=== PATIENT | male | born 1955 | race Caucasian/White ===

== ENCOUNTER 2017-06-20 10:53 | Outpatient (RCR) | payer BC, OTHER ==
[~2017-06-20] VITALS: Ht 180.3 cm; Wt 93.4 kg
[2017-06-20 10:56] VITALS: BP 120/60
== END 2017-09-18 | disposition home or self-care (01) ==
LOC: PULM 10:53
PROVIDERS: ATTEND Nurse Practitioner Family
DX: J44.9 Chronic obstructive pulmonary disease, unspecified (principal); I27.0 Primary pulmonary hypertension

== ENCOUNTER → 2018-03-01 | Outpatient (CLI) | payer BC, OTHER | LOC: LABNPT 14:43 | PROVIDERS: ATTEND Nurse Practitioner | DX: H92.12 Otorrhea, left ear (principal) | CPT/HCPCS: 87070 ==

== ENCOUNTER → 2019-10-03 | Outpatient (CLI) | payer BC, MEDICARE | LOC: CARD 11:00 | PROVIDERS: ATTEND Internal Medicine Cardiovascular Disease | DX: I11.0 Hypertensive heart disease with heart failure (principal); I50.9 Heart failure, unspecified; E78.5 Hyperlipidemia, unspecified; I34.0 Nonrheumatic mitral (valve) insufficiency | CPT/HCPCS: 93306 ==

== ENCOUNTER → 2020-04-08 | Outpatient (CLI) | payer MEDICARE ==
[~2020-04-08] MED LIST: CATHETER FLUSH 10 ML SYR IV PRN; HOLD METFORMIN - RECEIVED CONTRAST 20 ML VIAL IV SCH; IOHEXOL 350 MG/ML 100 ML (OMNIPAQUE 350) VIAL IV ONE; NS 100 ML (IVPB) BAG IV ONE; RT-ALBUTEROL SULF 2.5 MG/3 ML PRE-MIX VIAL INH ONE
[2020-04-08 12:09] LABS: BUN/CREATININE RATIO 13; CREATININE SERUM 0.86 MG/DL (0.60-1.30); GFR ESTIMATED > 60
--- NOTE | 2020-04-08 15:32 | Diagnostic Imaging Report ---
EXAMINATION: CT Chest with intravenous contrast. TECHNIQUE: Multiple contiguous axial images were obtained through the chest after the uneventful administration of intravenous contrast. All CT scans use one or more of the following dose optimizing techniques: automated exposure control, MA and/or KvP adjustment based on a patient size and exam type, or iterative reconstruction. HISTORY: COPD COMPARISON: 10/31/2007 FINDINGS: There is an airspace opacity in the posterior right upper lobe. There is a tiny right pleural effusion. No pneumothorax. No suspicious nodules. Lungs are severely emphysematous. There is bibasilar atelectasis. There is extensive dendriform pulmonary ossification in the lung bases. Evaluation of the parenchyma is reduced due to respiratory motion and expiratory phase of imaging. There is no axillary or supraclavicular lymphadenopathy. There is no mediastinal lymphadenopathy. Heart size is normal. There are no coronary artery calcifications. No pericardial effusion. Aorta is normal in caliber. Limited views of the upper abdomen show changes of cholecystectomy. There are left renal cysts. There are no suspicious osseous lesions. IMPRESSION: 1. Severe emphysema with extensive dendriform pulmonary ossification in the lung bases. Airspace opacity in the posterior right upper lobe may represent atelectasis or pneumonia but a three-month follow-up is recommended to ensure it resolves. 2. Tiny right pleural effusion. Dictated by: Dictated on workstation # [id number]
== END ==
LOC: RAD 11:27
PROVIDERS: ATTEND Nurse Practitioner Family
DX: J43.9 Emphysema, unspecified (principal)
CPT/HCPCS: 36415; 71260; 82565; 84520; 94060; 94726; 94729

== ENCOUNTER → 2022-05-18 | Outpatient (CLI) | payer MEDICARE | LOC: CARD 09:27 | PROVIDERS: ATTEND Internal Medicine Cardiovascular Disease | DX: I10 Essential (primary) hypertension (principal) | CPT/HCPCS: 93306 ==

== ENCOUNTER → 2022-06-21 | Outpatient (CLI) | payer MEDICARE ==
[~2022-06-21] VITALS: Ht 177 cm; Wt 104.0 kg
[~2022-06-21] MED LIST changes: -CATHETER FLUSH 10 ML SYR IV PRN; -HOLD METFORMIN - RECEIVED CONTRAST 20 ML VIAL IV SCH; -IOHEXOL 350 MG/ML 100 ML (OMNIPAQUE 350) VIAL IV ONE; -NS 100 ML (IVPB) BAG IV ONE; +REGADENOSON 0.4 MG/5 ML SYR (LEXISCAN) IV ONE; -RT-ALBUTEROL SULF 2.5 MG/3 ML PRE-MIX VIAL INH ONE
[2022-06-21] MEDS: CATHETER FLUSH 10 ML SYR IVP PRN ×2 (08:02→09:30)
[2022-06-21 08:11] VITALS: BP 120/85
[2022-06-21 09:19] VITALS: BP 170/114
--- NOTE | 2022-06-21 12:03 | Cardiology Stress Test Report ---
Stress Test Report Date of Procedure/Referring: Date of Procedure: Jun 21, 2022 PCP Beryl Coleman MD Admitting Physician Admitting Physician: Attending Physician: Raghu Palma MD Indications: a fib Baseline Heart Rate: 81 Baseline Blood Pressure: Blood Pressure Systolic: 170 Blood Pressure Diastolic: 114 Baseline Vitals Vital Signs Date Time Temp Pulse Resp B/P (MAP) Pulse Ox O2 Delivery O2 Flow Rate FiO2 06/21/22 09:19 80 170/114 (132) Baseline EKG: Baseline EKG: a fib, frequent PVCs Summary After explaining the procedure to the patient, he signed a consent and then brought to the stress nuclear laboratory. Patient received 0.4 mg Lexiscan for stress test, ECG, heart rate and blood pressure were monitored continuously. Resting and stress dose of radio tracer were injected, imaging was acquired and reviewed in short axis, horizontal long axis and vertical long axis views. TID: 0.96 SSS: 12 SDS: 0 EF: 62 Baseline atrial fibrillation with frequent PVCs noted Patient tolerated Lexiscan well Fixed defect involving the inferior wall and apex, no significant ischemia was noted Normal left ventricular size, ejection fraction 62%, atrial fibrillation will affect the gated images Copy Copies To 1: BERYL COLEMAN MD, BASHAR J MD Jun 21, 2022 12:03
== END ==
LOC: CARD 07:30
PROVIDERS: ATTEND Internal Medicine Cardiovascular Disease
DX: I48.91 Unspecified atrial fibrillation (principal); I10 Essential (primary) hypertension; I25.10 Atherosclerotic heart disease of native coronary artery without angina pectoris
CPT/HCPCS: 78452; 93017; A9502

== ENCOUNTER 2022-07-22 07:55 | Inpatient (IN) | payer MEDICARE ==
[~2022-07-22] VITALS: Ht 177.8 cm; Wt 100.6 kg
--- OUTSIDE RECORDS SUMMARY | 2022-07-22 08:00 | XMS REPORT | Encounter Summary ---
Author Author [facility] Organization [facility] Address Unknown Phone Unavailable Care Team Providers Care Associate Store Director Name Role Phone Bernarda Cervantes APRN-NATURAL RESOURCES INSTRUCTOR Unavailable Beryl Shi MD PCP Ramin Wang MD Unavailable Bert Kaiser MD Unavailable Reason for Visit * Reason Onset Date Comments Follow-up Phone Call 07/19/2022 Near syncope Encounter Details Care Team Description Date Type Department Lucia Bocanegra RN Follow-up Phone Call (Near syncope) 07/19/2022 Telephone Cardiology: [facility] [address] [facility] [address] [place] [address] Social History Date Tobacco Use Types Packs/Day Years Used Quit: 09/07/2006 Smoking Tobacco: Former Cigarettes Comments Alcohol Use Standard Drinks/Week Quit Yes 0 (1 standard drink = 0.6 o z pure alcohol) Date Recorded Alcohol Use Answer Alcohol Use Yes Male: 9+ ounces (15+ Standard Drinks) per week 0 Threshold Female: 4.8+ ounces (8+ Standard Drinks) per week No t on file Threshold Date Recorded Sex and Gender Information Value Sex Assigned at Not on file Gender Identity Not on file Sexual Orientation Not on file Date Recorded COVID-19 Exposure Response 07/02/2022 1:09 PM CDT In the last 10 days, have you been in contact with N o / Unsure someone who was confirmed or suspected to have Coronavirus/COVID-19? documented as of this encounter Miscellaneous Notes * Telephone Encounter - Lucia Bocanegra RN - 07/19/2022 3:11 PM CDT Called and spoke to pt. Reviewed MPE's plan and RW's recommendations with pt. St op flecainide, obtain a BMP-order sent, and plan for possible Tikosyn admission. Will contact pt pending lab results.Patient verbalized understanding and does n ot have any further questions or concerns. No further education requested from p atient. Patient has our contact information for future needs. * Telephone Encounter - Lucia Bocanegra RN - 07/19/2022 3:10 PM CDT Pt called at 2:30 and 2:32pm. Asked that Lucia call him back at #[phone]. * Telephone Encounter - Eladia Sheppard BSN - 07/19/2022 3:05 PM CDT Images from the original note were not included. * Telephone Encounter - Eladia Sheppard BSN - 07/19/2022 3:05 PM CDT Images from the original note were not included. * Telephone Encounter - Lucia Bocanegra RN - 07/19/2022 2:29 PM CDT Reviewed tests results with Jennifer Adkins APRN. Due to wide QRS and pt sympto ms, stop flecainide. Proceed with tikosyn admission pending BMP results.Called t o discuss rhythm strips and EKG results. LVM for pt to call back. * Telephone Encounter - Lucia Bocanegra RN - 07/19/2022 1:22 PM CDT RC to pt, confirmed that his EKG shows A-fib. Requested for pt to email strips f [employer] mobile device, pt will attempt to email those. * Telephone Encounter - Lucia Bocanegra RN - 07/19/2022 10:29 AM CDT Called and spoke to pt, he reports having a near syncopal episode om Tuesday. He states he started his flecainide on 07/07 and "was fairly stable" until he started receiving alerts from his [employer] mobile device. These reports were label ed as "unreadible, unclassified, and SR with wide QRS." Pt reports he stopped ta prudence flecainide on 07/17. Nurse advised pt to contact DR. Palma's office and for pt to have EKG performed and for him to schedule DCCV. Nurse informed pt that on ce we receive the EKG results, he will be notified regarding medication instruct ions. Order for EKG faxed to Dr. Palma's office. Patient verbalized understandi ng and does not have any further questions or concerns. No further education req uested from patient. Patient has our contact information for future needs. * Telephone Encounter - Lucia Bocanegra RN - 07/19/2022 10:29 AM CDT ----- Message from Dinah Granados RN sent at 07/19/2022 8:42 AM CDT ----- Regarding: FW: MPE- near syncope MPE patient ----- Message ----- From: Palma Jean LPN Sent: 07/19/2022 8:27 AM CDT To: Cvm Nurse Ep Team A Subject: YMR- near syncope VM on triage line from patient Tuesday at 10:40am. Said that he is on his 10th day of taking Flecainide and he almost passed out to day. Said that he is dizzy, should I stop the medication? Call him at #[phone]. documented in this encounter Plan of Treatment Order Schedule Name Type Priority Associated Diag noses Expected: 07/19/2022 (Approximate), Expi res: 07/20/2023 BASIC METABOLIC PANEL Lab Routine Persiste nt atrial fibrillation (HCC) documented as of this encounter Visit Diagnoses Diagnosis Persistent atrial fibrillation (HCC) - Primary Atrial fibrillation * Addendum Note - Lucia Bocanegra RN - 07/19/2022 3:17 PM CDT Addended by: LUCIA BOCANEGRA on: 07/19/2022 03:17 PM Modules accepted: Orders documented in this encounter Care Teams Start Date End Date Associate Store Director Relationship Specialty 07/16/11 Beryl Shi MD PCP - General [address] [place] [address] [address] [place] [address] 06/30/11 Bernarda Cervantes APRN-NATURAL RESOURCES INSTRUCTOR [facility] [address] [facility] [address] [place] [address] 07/16/11 Ramin Wang MD [facility] [address] [facility] [id number] [place] [address] 08/23/12 Bert Kaiser MD [facility] [address] [place] [address] documented as of this encounter
--- OUTSIDE RECORDS SUMMARY | 2022-07-22 08:00 | XMS REPORT | Encounter Summary ---
Author Author [facility] Organization [facility] Address Unknown Phone Unavailable Care Team Providers Care Talent Rep Name Role Phone Bernarda Cervantes APRN-CAMPUS SECURITY OFFICER Unavailable Beryl Shi MD PCP Ramin Wang MD Unavailable Bert Kaiser MD Unavailable Encounter Details Care Team Description Date Type Department Madhu Agrawal MD [address] [facility] [id number] [place], [place] [id number] Persistent atrial fibrillation (HCC) (Pr imary Dx); Syncope, unspecified syncope type 07/19/2022 Orders Only Cardiology: [facility] [address] [facility] [place] [phone] Social History Date Tobacco Use Types Packs/Day [...] have Coronavirus/COVID-19? documented as of this encounter Plan of Treatment Order Schedule Name Type Priority Associated Diag noses Expected: 07/19/2022 (Approximate), Expi res: 07/20/2023 ECG 12-LEAD ECG Routine Persistent atri al fibrillation (HCC) Syncope, unspecified syncope type documented as of this encounter Visit Diagnoses Diagnosis Persistent atrial fibrillation (HCC) - Primary Atrial fibrillation Syncope, unspecified syncope type documented in this encounter Care Teams Start Date End Date Talent Rep Relationship Specialty 07/16/11 Beryl Shi MD PCP - General [address] [place] [address] [address] [place] [address] 06/30/11 Bernarda Cervantes APRN-CAMPUS SECURITY OFFICER [facility] [address] [facility] [address] [place] [address] 07/16/11 Ramin Wang MD [facility] [address] [facility] [address] [place] [address] 08/23/12 Bert Kaiser MD [facility] [address] [place] [address] documented as of this encounter
--- OUTSIDE RECORDS SUMMARY | 2022-07-22 08:00 | XMS REPORT | Encounter Summary ---
Author Author [facility] Organization [facility] Address Unknown Phone Unavailable Care Team Providers Care Nut Tightener Name Role Phone Bernarda Cervantes APRN-SLEEVE BASTER Unavailable Beryl Shi MD PCP Ramin Wang MD Unavailable Bert Kaiser MD Unavailable Reason for Visit * Reason Comments New Patient Encounter Details Care Team Description Date Type Department Bre Nuno RN New Patient 06/29/2022 Patient Profile Cardiology: [facility] [address] [place] [address] Social History Date Tobacco Use Types Packs/Day Years Used Quit: 09/07/2006 Smoking Tobacco: Former Cigarettes Tobacco Cessation: Counseling Given: Not Answered Comments Alcohol Use Standard Drinks/Week Quit Yes 0 (1 standard drink = 0.6 o z pure alcohol) Date Recorded Sex and Gender Information Value Sex Assigned at Not on file Gender Identity Not on file Sexual Orientation Not on file documented as of this encounter Plan of Treatment Not on filedocumented as of this encounter Visit Diagnoses Diagnosis History of CHF (congestive heart failur e) Personal history of other diseases of c irculatory system Pulmonary embolism, unspecified chronic ity, unspecified pulmonary embolism type, unspecified whether acute cor pulmonale present (HCC) History of COVID-19 Atrial fibrillation, unspecified type ( HCC) Primary hypertension Unspecified essential hypertension Carotid artery disease, unspecified lat erality, unspecified type (HCC) documented in this encounter Care Teams Start Date End Date Nut Tightener Relationship Specialty 07/16/11 Beryl Shi MD PCP - General [address] [place] [address] [address] [place] [address] 06/30/11 Bernarda Cervantes APRN-SLEEVE BASTER [facility] [address] [facility] [address] [place] [address] 07/16/11 Ramin Wang MD [facility] [address] [facility] [id number] [place] [address] 08/23/12 Bert Kaiser MD [facility] [address] [place] [address] documented as of this encounter
--- OUTSIDE RECORDS SUMMARY | 2022-07-22 08:00 | XMS REPORT | Encounter Summary ---
Author Author [facility] Organization [facility] Address Unknown Phone Unavailable Care Team Providers Care [employer] Name Role Phone Bernarda Cervantes APRN-PICTURES EDITOR Unavailable Beryl Shi MD PCP Ramin Wang MD Unavailable Bert Kaiser MD Unavailable Reason for Visit * Reason Comments Electrocardiogram Outside EKG Encounter Details Care Team Description Date Type Department Nereida Arredondo Electrocardiogram (Outside EKG ) 07/19/2022 Documentation Cardiology: [facility] [address] [facility] [address] [place] [address] Social History Date Tobacco Use [...] Not on filedocumented as of this encounter Procedures Comments Procedure Name Priority Date/Time Associated Diag nosis ECG 12-LEAD Routine 07/19/2022 documented in this encounter Results * (ABNORMAL) ECG 12-LEAD (07/19/2022) Anatomical Location / Laterality Collection Method / Volume Kiran ection Time Received Time Specimen (Source) 07/19/2022 Historical Provider ECG ORDERABLES City/State/ZIP Code Phone Number Performing Address Organization OTHER OUTSIDE RADIOLOGY documented in this encounter Visit Diagnoses Not on filedocumented in this encounter Care Teams Start Date End Date [employer] Relationship Specialty 07/16/11 Beryl Shi MD PCP - General [address] [place] [address] [address] [place] [address] 06/30/11 Bernarda Cervantes APRN-PICTURES EDITOR [facility] [address] [facility] [address] [place] [address] 07/16/11 Ramin Wang MD [facility] [address] [facility] [id number] [place] [address] 08/23/12 Betr Kaiser MD [facility] [address] [place] [address] documented as of this encounter
--- OUTSIDE RECORDS SUMMARY | 2022-07-22 08:00 | XMS REPORT | Encounter Summary ---
Author Author [facility] Organization [facility] Address Unknown Phone Unavailable Care Team Providers Care Mobile Home Mechanic Name Role Phone Bernarda Cervantes APRN-SYSTEM SPECIALIST Unavailable Beryl Shi MD PCP Ramin Wang MD Unavailable Bert Kaiser MD Unavailable Reason for Visit * Reason Comments Lab Results BMP Encounter Details Care Team Description Date Type Department Trina Smith RN Lab Results (BMP) 07/21/2022 Documentation Cardiology: [facility], [address] [place] [address] Social History Date Tobacco Use Types Packs/Day [...] Procedure Name Priority Date/Time Associated Diag nosis BASIC METABOLIC PANEL Routine 07/20/2022 documented in this encounter Results * BASIC METABOLIC PANEL (07/20/2022) Pathologist Signature Component Value Ref Test Method Analysis Performed A t Range Time Sodium 140 OTHER OUTSIDE LAB Potassium 4.6 OTHER OUTSIDE LAB Chloride 102 OTHER OUTSIDE LAB CO2 31 OTHER OUTSIDE LAB Blood Urea Nitrogen 13 OTHER OUTSIDE LAB Creatinine 0.98 OTHER OUTSIDE LAB Glucose OTHER OUTSIDE LAB Calcium OTHER OUTSIDE LAB eGFR Non OTHER OUTSIDE LAB [place] eGFR OTHER OUTSIDE LAB [place] Anion Gap OTHER OUTSIDE LAB Anatomical Location / Laterality Collection Method / Volume Kiran ection Time Received Time Specimen (Source) BLOOD / Unknown 07/20/2022 Historical Provider LABORATORY ORDERABLES City/State/ZIP Code Phone Number Performing Address Organization OTHER OUTSIDE LAB documented in this encounter Visit Diagnoses Not on filedocumented in this encounter Care Teams Start Date End Date Mobile Home Mechanic Relationship Specialty 07/16/11 Beryl Shi MD PCP - General [address] [place] [address] [address] [place] [address] 06/30/11 Bernarda Cervantes, COMMERCIAL DRAFTER-SYSTEM SPECIALIST [facility] [address] [facility] [address] [place] [address] 07/16/11 Ramin Wang MD [facility] [address] [facility] [id number] [place] [address] 08/23/12 Bert Kaiser MD [facility] [address] [place] [address] documented as of this encounter
--- OUTSIDE RECORDS SUMMARY | 2022-07-22 08:00 | XMS REPORT | Encounter Summary ---
Author Author [facility] Organization [facility] Address Unknown Phone Unavailable Care Team Providers Care Network Technician Name Role Phone Bernarda Cervantes APRN-CORRECTIONAL OFFICER SERGEANT Unavailable Beryl Shi MD PCP Ramin Wang MD Unavailable Bert Kaiser MD Unavailable Encounter Details Care Team Description Date Type Department Jeanne Lee 05/27/2022 Telephone Cardiology: [facility] [address] [facility] [address] [place] [address] Social History Date Tobacco Use Types Packs/Day Years Used Quit: 09/07/2006 Smoking Tobacco: Former Cigarettes Comments Alcohol Use Standard Drinks/Week Quit Yes 0 (1 standard drink = 0.6 o z pure alcohol) Date Recorded Sex and Gender Information Value Sex Assigned at Not on file Gender Identity Not on file Sexual Orientation Not on file documented as of this encounter Miscellaneous Notes * Telephone Encounter - Molly Archer - 06/25/2022 1:30 PM CDT 06-25-22 Records came in from Dr Beryl Shi and from Dr Palma and they have be en indexed into the chart. sls * Telephone Encounter - Jeanne Lee - 05/27/2022 8:51 AM CDT 05-27-2022 Per Task Message,requests faxed to Dr Raghu Palma, (f) [phone], (P) [phone], and Dr Beryl Shi, (F) [phone], (P) [phone], requ ested records go to [facility] Dr. Raghu Palma - ; - Dx: PAF - Ins: Medicare - Received Office Visit, Lab, and EKG. Collect Outside Records Not Started 06/02/2022 Dr. Beryl Shi MD [address] [place] [address] documented in this encounter Plan of Treatment Not on filedocumented as of this encounter Visit Diagnoses Not on filedocumented in this encounter Care Teams Start Date End Date Network Technician Relationship Specialty 07/16/11 Beryl Shi MD PCP - General [address] [place] [address] [address] [place], [place] [id number] 06/30/11 Bernarda Cervantes, BRUSHING OPERATOR-CORRECTIONAL OFFICER SERGEANT [facility] [address] [facility] [address] [place] [address] 07/16/11 Ramin Wang MD [facility] [address] [facility] [address] [place] [address] 08/23/12 Bert Kaiser MD [facility] [address] [place] [address] documented as of this encounter
--- OUTSIDE RECORDS SUMMARY | 2022-07-22 08:00 | XMS REPORT | Clinical Summary ---
Author Author [facility] Organization [facility] Address Unknown Phone Unavailable Care Team Providers Care Community Organization Director Name Role Phone Bernarda Cervantes APRN-PHLEBOTOMY DIRECTOR Unavailable Beryl Shi MD PCP Ramin Wang MD Unavailable Bert Kaiser MD Unavailable Source Comments Some departments are not documenting in the electronic medical record. If you d o not see the information that you expected, contact Release of Information in [facility] Information Management department at [phone] for further assistan ce in locating additional records.[facility] Allergies Comments Active Allergy Reactions Criticality Noted Date Ramipril COUGH Low 06/29/2022 Medications End Date Status Medication Sig Dispensed Refills Start Date Active ALBUTEROL SULFATE (PROAIR Inhale by 0 HFA IN) mouth as Needed. Active ROFLUMILAST (DALIRESP PO) Take 500 mcg 0 by mouth daily. Active carvedilol (COREG) 12.5 Take one 0 mg tablet tablet by mouth twice daily with meals. Active citalopram (CELEXA) 20 mg Take one 0 tablet tablet by mouth daily. Active LEVOTHYROXINE SODIUM Take 0.05 mcg 0 (LEVOTHYROXINE PO) by mouth daily. Active lisinopril (PRINIVIL, Take one 0 ZESTRIL) 40 mg tablet tablet by mouth daily. Active other medication daily. 0 Spiriva 1 capsule Active cetirizine (ZYRTEC) 10 mg Take one 0 tablet tablet by mouth every morning. Active dilTIAZem XC (TIAZAC) 240 Take one 0 mg capsule capsule by mouth daily. Active MELATONIN PO Take by 0 mouth. Active mirtazapine (REMERON) 15 Take one 0 mg tablet tablet by mouth at bedtime daily. Active montelukast (SINGULAIR) Take one 0 10 mg tablet tablet by mouth at bedtime daily. Active OXYGEN-AIR DELIVERY Use as 0 SYSTEMS MISC directed. 3 ltr oxygen Active QUEtiapine (SEROQUEL) 50 Take one 0 mg tablet tablet by mouth twice daily. Active rosuvastatin (CRESTOR) 5 Take one 0 mg tablet tablet by mouth daily. Active ukarvkgaptp-sctrrbgqa-rmu Inhale one 0 anter (TRELEGY ELLIPTA) puff by mouth 100-62.5-25 mcg inhaler into the lungs daily. Active venlafaxine XR (EFFEXOR Take one 0 XR) 75 mg capsule capsule by mouth daily. Take with food. Active rivaroxaban (XARELTO) 20 Take one 0 mg tablet tablet by mouth daily. Take with food. Active flecainide (TAMBOCOR) 50 Take 1.5 90 tablet 5 0 mg tablet tablets by 3 mouth twice daily. 07/02/2022 Discontinued (Reorder) flecainide (TAMBOCOR) 50 Take 1.5 180 tablet 3 0 202 mg tablet tablets by 3 mouth twice daily. 07/05/2022 Discontinued (Reorder) flecainide (TAMBOCOR) 50 Take 1.5 180 tablet 3 0 202 mg tablet tablets by 3 mouth twice daily. 07/06/2022 Discontinued (Reorder) flecainide (TAMBOCOR) 50 Take 1.5 180 tablet 3 0 mg tablet tablets by 3 mouth twice daily. Active Problems Problem Noted Date Diagnosed Date History of CHF (congestive heart failure) 06/29/2022 Overview: Per OV note on 04/26/[address] Beto Palma ([facility]) 08/20/2017 - ECHO: ([facility]) C oncentric LVH with good LV systolic function with EF = 60% . Trivial MVI and TVI with borderline elevated right hear t pressures. 10/03/2019 - ECHO: ([facility]) LV cavity size is increased . LV wall thickness is moderately increased. LV systolic f unction is mildly reduced. EF ~ 45-50%. There were no r egional wall motion abnormalities identified. LV diastolic function parameters are normal for the patient's age. Mild to moderate TVR. PASP is in the range of 35-40mmHg. DVT (deep venous thrombosis) 06/29/2022 Overview: Per OV note on 04/26/[address] Beto Palma ([facility]) 03/03/2020 - Bilateral Venous Doppler ( [facility]) The left leg venous doppler is normal. There is isolated thrombosis in the right anteri or tibial vein, so there is isolated right left DVT. Pulmonary embolism 06/29/2022 Overview: Per OV note on 04/26/[address] Beto Palma ([facility]) 03/01/2020 - CTA Pulmonary Angiogram: ([facility]) The study is positive for a sm all PE in both the right middle lobe artery and right lowe r lobe artery. There is a small area of infarction in the RL L. There is also some area of PNA in the RLL posteriorly . History of COVID-19 06/29/2022 Overview: Per OV note on 04/26/[address] Beto Palma ([facility]) Atrial fibrillation 06/29/2022 Overview: Per OV note on 04/26/[address] Beto Palma ([facility]) 03/03/2020 - ECHO: ([facility]) Technically a difficult study. Global LV systolic fu nction appears to be at the lower limit of normal with an EF ~ 50%. No significant valvular regurgitation or s tenosis. PASP ~ 25mmHg. 05/18/2022 - ECHO: ([facility]) LV cavity size is normal. LV wall thickness is mildly to moderate increased. There is mild concentric LVH. LV systolic function is normal. EF ~ 6 0-65%. There were no regional wall motion abnormalities i dentified. Trivial AVR. PASP is in the range of 20-25mmHg . 06/21/2022 - MPI: ([facility]) Baseline AF with frequent P VCs noted. Patient tolerated Lexiscan well. Fixed defect involving the inferior wall and apex, no significant ischemia was noted. Normal LV size, EF = 62%, AF will affec t the gated images. Primary hypertension 06/29/2022 Overview: Per OV note on 04/26/[address] Beto Palma ([facility]) Carotid artery disease 06/29/2022 Overview: Per OV note on 04/26/[address] Beto Palma ([facility]) 06/16/2021 - Carotid Artery Ultrasound: ([facility]) Right: Mild 1-39% internal carotid art tangela stenosis, nonobstructive disease. Antegrade vert ebral flow. Left: Mild 1-39% internal carotid artery sten osis, nonobstructive disease. Vertebral flow not visualized . Hepatitis C 07/22/2011 Last Assessment & Plan: Formatting of t his note might be different from the original. Genotype unknown , PCR just over 1 mill ion. The patient is combination therapy treatment naive. Rachel tan was diagnosed in the . He had a liver biopsy at [facility] per his report showing moderate fibrosis. I am unable to locate that report at this time. Risk factors for hepatitis C include intravenous drug use in the 0s. Also possible blood transfusion in the . He garcia s also admit to high-risk sexual behavior. I discussed what is hepatitis C and the natural progression of hepatiti s C. The patient states he has been very well educated o n hepatitis C. Repeat liver biopsy July 2011 showed sta ge 1-2 fibrosis. This was reviewed with pt. He has had very little progression of liver disease. Called P CP for genotype. They will fax. We discussed the alcira atment regimens available for hepatitis C. If he is ge notype 1, he qualifies for the new Protease inhibito rs used in combination with interferon and ribavir in. Course of treatment could be six months to one ye ar depending on stage of liver disease as well as response to treatment. If he is genotype 2 or 3, will require six month s of treatment. Concerns for treatment candidate includ e cardiac and pulmonary history. Pt would like to gi ve tx further consideration. WIll discuss with PCP, draw press operator and hotel engineer. Would appreciate their input. Pulmonary emphysema 07/22/2011 Overview: 04/08/2020 - Plethysmography: ([facility]) There is a sev ere obstructive lung defect. The airway obstruction is conf irmed by the decrease in flow rate at peak flow and flow at 2 5%, 50% and 75% of the flow volume curve. An obstructive l noé defect is confirmed by an increased RV. There is a severe decrease in diffusing capacity, suggesting emphysem a in the presence of an obstructive lung defect. FEF 25-75 changed by 21%. This is interpreted as a mild response to br onchodilator. Last Assessment & Plan: Formatting of t his note might be different from the original. This is concerning re: interferon treat ment. He is stable now. Would appreciate pulmonary opinio n for tx with interferon. Cardiovascular disease 07/22/2011 Last Assessment & Plan: Formatting of t his note might be different from the original. Followed by cardiology. The patient sta elza he has had improvement of ejection fraction over t he years. I recommend seeking their opinion regardi ng cardiovascular status for hepatitis C treatment. Hypothyroidism 07/22/2011 Last Assessment & Plan: Formatting of t his note might be different from the original. On thyroid replacement. Would need leticia se monitoring of level while on interferon treatment. Depression 07/22/2011 Last Assessment & Plan: Formatting of t his note might be different from the original. He has history of depression currently not followed by behavioral health. We would most likel y refer to behavioral health for their opinion regarding risk of decompensation on interferon and also recommend that they follow the patient throughout the course of treatment in c ase of decompensation. Alcohol abuse 07/22/2011 Last Assessment & Plan: Formatting of t his note might be different from the original. The patient has longstanding history of alcohol abuse. We had a long discussion regarding the nee d of AA counseling one-hour per week for six months docume ntation in the event the patient should need a liver transpl ant in the future. He would not qualify until this documen tation was acquired. I recommend no alcohol as this can incr ease progression of liver disease. He has started AA couns eling and presented with documentation today. Encounters Care Team Description Date Type Department Trina Smith RN Lab Results (BMP) 07/21/2022 Documentation Cardiology: [facility] [address], [address] [place] [phone] Madhu Agrawal MD External Communication 07/20/2022 Documentation Cardiology: [address], [address] [place] [phone] Nereida Arredondo Electrocardiogram (Outside EKG ) 07/19/2022 Documentation Cardiology: [address], [address] [place] [phone] Lucia Silveira RN Follow-up Phone Call (Near syncope) 07/19/2022 Telephone Cardiology: [address], [address] [place] [phone] Madhu Agrawal MD Persistent atrial fibrillation (HCC) (Pr imary Dx); Syncope, unspecified syncope type 07/19/2022 Orders Only Cardiology: [address], [address] [place] [address] Casa Atkinson RN Medication Question 07/05/2022 Telephone Cardiology: [facility] [address], [address] [place] [phone] Madhu Agrawal MD Care Coordination 07/02/2022 Office Visit Cardiovascular Medi cine: 1:30 PM [facility] [employer] [email or web address] [address] 07/02/2022 Travel Bre Nuno RN New Patient 06/29/2022 Patient Profile Cardiology: [facility] [address], [address] [place] [address] Jeanne Lee 05/27/2022 Telephone Cardiology: [facility] [address], [address] [place] [address] from Last 3 Months Surgical History Surgery Date Site/Laterality Comments ELECTROCARDIOGRAM DOPPLER ECHOCARDIOGRAPHY CARDIOVASCULAR STRESS TEST Medical History Medical History Date Comments Lung disease Hepatitis History of CHF (congestive heart 06/29/2022 failure) DVT (deep venous thrombosis) (HCC) 06/29/2022 Pulmonary embolism (HCC) 06/29/2022 History of COVID-19 06/29/2022 Atrial fibrillation (HCC) 06/29/2022 Primary hypertension 06/29/2022 Carotid artery disease (HCC) 06/29/2022 Family History Medical History Relation Name Comments Diabetes Father Heart Disease Father Hypertension Father Relation Name Status Comments Father Social History Date Tobacco Use Types Packs/Day [...] was confirmed or suspected to have Coronavirus/COVID-19? Obstetrics History Last Filed Vital Signs Reading Time Taken Comments Vital Sign 109/71 07/02/2022 1:28 PM CDT Blood Pressure 80 07/02/2022 1:28 PM CDT Pulse 36.3 C (97.4 F) 07/02/2022 1:28 PM CDT Temperature 16 07/22/2011 1:45 PM CDT Respiratory Rate 98% 07/16/2011 11:55 AM CDT Oxygen Saturation - - Inhaled Oxygen Concentration 104.5 kg (230 lb 6.1 oz) 07/02/2022 1:28 PM CDT Weight 180.3 cm (5' 11") 07/22/2011 1:45 PM CDT Height - - Body Mass Index Plan of Treatment Health Maintenance Due Date Last Done Comments MEDICARE ANNUAL WELLNESS 1955 VISIT DTAP/TDAP VACCINES (1 - 06/02/1971 Tdap) HEPATITIS C SCREENING 06/02/1971 PHYSICAL (COMPREHENSIVE) 06/02/1971 EXAM COLORECTAL CANCER 1998 SCREENING SHINGLES RECOMBINANT 06/02/2003 VACCINE (1 of 2) ABDOMINAL AORTIC ANEURYSM 2018 SCREENING PNEUMOCOCCAL VACCINE 65+ 06/21/2020 06/22/2019, YRS (2 - PCV) 03/06/2018 ADVANCED CARE PLANNING 03/07/2022 DISCUSSION AND DOCUMENTATION COVID-19 VACCINE Completed 01/01/2022, 03/19/2021, 06/06/2020, Additional history exists INFLUENZA VACCINE Completed 01/01/2022, 12/19/2019, 03/15/2019 Procedures Comments Procedure Name Priority Date/Time Associated Diag nosis BASIC METABOLIC PANEL Routine 07/20/2022 ECG 12-LEAD Routine 07/19/2022 from Last 3 Months Results * BASIC METABOLIC PANEL (07/20/2022) Pathologist [...] OUTSIDE LAB eGFR Non OTHER OUTSIDE LAB German eGFR OTHER OUTSIDE LAB German Anion Gap OTHER OUTSIDE LAB Anatomical Location / Laterality Collection Method / Volume Kiran ection Time Received Time Specimen (Source) BLOOD / Unknown 07/20/2022 Historical Provider LABORATORY ORDERABLES City/State/ZIP Code Phone Number Performing Address Organization OTHER OUTSIDE LAB * (ABNORMAL) ECG 12-LEAD (07/19/2022) Anatomical Location / Laterality Collection Method / Volume Kiran ection Time Received Time Specimen (Source) 07/19/2022 Historical Provider ECG ORDERABLES City/State/ZIP Code Phone Number Performing Address Organization OTHER OUTSIDE RADIOLOGY from Last 3 Months Insurance Type Payer Benefit Subscriber ID Effective Phone Address Plan / Dates Group Medicare HUMANA MEDICARE HUMANA [id number] 2022-P [phone] [address] [address] [place] [address] Care Teams Start Date End Date Community Organization Director Relationship Specialty 07/16/11 Beryl Shi MD PCP - General [address] [place] [address] [address] [place], [place] [phone] 06/30/11 Bernarda Cervantes APRN-PHLEBOTOMY DIRECTOR [facility] [address] [facility] [address] [place] [address] 07/16/11 Ramin Wang MD [facility] [address] [facility] [id number] [place] [address] 08/23/12 Bert Kaiser MD [facility] [address] [place] [address]
--- OUTSIDE RECORDS SUMMARY | 2022-07-22 08:00 | XMS REPORT | Encounter Summary ---
Author Author [facility] Organization [facility] Address Unknown Phone Unavailable Care Team Providers Care Balance Recesser Name Role Phone Bernarda Cervantes APRN-LINE MAINTENANCE Unavailable Beryl Shi MD PCP Ramin Wang MD Unavailable Bert Kaiser MD Unavailable Encounter Details Care Team Description Date Type Department 07/02/2022 Travel Social History Date Tobacco Use Types Packs/Day [...] encounter Care Teams Start Date End Date Balance Recesser Relationship Specialty 07/16/11 Beryl Shi MD PCP - General [address] [place] [address] [place] [address] 06/30/11 Bernarda Cervantes APRN-LINE MAINTENANCE [facility] [address] [facility] [address] [place] [address] 07/16/11 Ramin Wang MD [facility] [address] [facility] [id number] [place] [address] 08/23/12 Bert Kaiser MD [facility] [address] [place] [phone] documented as of this encounter
--- OUTSIDE RECORDS SUMMARY | 2022-07-22 08:00 | XMS REPORT | Encounter Summary ---
Author Author [facility] Organization [facility] Address Unknown Phone Unavailable Care Team Providers Care Criminal Intelligence Analyst Name Role Phone Bernarda Cervantes APRN-WINDOWS PHONE DEVELOPER Unavailable Beryl Shi MD PCP Ramin Wang MD Unavailable Bert Kaiser MD Unavailable Reason for Visit * Reason Comments External Communication Encounter Details Care Team Description Date Type Department Madhu Agrawal MD [address] [facility] [id number] [place], [place] [phone] External Communication 07/20/2022 Documentation Cardiology: [facility] [address] [facility], [address] [place] [phone] Social History Date Tobacco Use Types Packs/Day [...] have Coronavirus/COVID-19? documented as of this encounter Progress Notes * Madhu Agrawal MD - 07/20/2022 11:13 AM CDT I received a phone call from Dr. Palma regarding his patient Gianluca Kimble. I had seen him on July 02 for initial EP consultation. At that time it was unc lear whether his A-fib is asymptomatic or not. He had never been tried on antiarrhythmic drug therapy. He has not had sinus rh ythm restored for any significant period of time. The question that the patient and his had were would he feel better i.e. sy mptomatic improvement with buddhism and maintenance of sinus rhythm. There was reluctance to utilize amiodarone due to to his severe COPD. There was concern about Multaq due to his history of hepatitis. He had undergone negative stress imaging and therefore I recommended initiation of flecainide ultimately. However he had some intolerance to flecainide apparen tly. We had discussed the possibility of pursuing an AFIB ablation procedure, however again he was interested to see if he would feel better in sinus rhythm. Per my note if flecainide was not an option or he was intolerant to refractory t o it I had recommended Tikosyn. THEREFORE AT THIS TIME, Dr. Palma will admit the patient to initiate Tikosyn The rapy and proceed with DC synchronous cardioversion. IF he has recurrent atrial fibrillation within the first few days post cardiover delma or post discharge, that he should not get discouraged. I would continue Ti kosyn for another 7-10 days and then repeat the cardioversion remaining on Tikos yn, If after that he has recurrent atrial fibrillation, would need to change ant iarrhythmic drug therapy or pursue other therapeutic interventions. If he clearly feels better in sinus rhythm once he has it restored and maintaine d on Tikosyn then he will consider whether he wishes to pursue an AFIB Cryo Abla tion Procedure. documented in this encounter Plan of Treatment Not on filedocumented as of this encounter Visit Diagnoses Not on filedocumented in this encounter Care Teams Start Date End Date Criminal Intelligence Analyst Relationship Specialty 07/16/11 Beryl Shi MD PCP - General [address] [place] [address] [address] [place] [address] 06/30/11 Bernarda Cervantes APRN-WINDOWS PHONE DEVELOPER [facility] [address] [facility] [address] [place] [address] 07/16/11 Ramin Wang MD [facility] [address] [facility] [id number] [place] [address] 08/23/12 Bert Kaiser MD [facility] [address] [place] [address] documented as of this encounter
--- OUTSIDE RECORDS SUMMARY | 2022-07-22 08:00 | XMS REPORT | Encounter Summary ---
Author Author [facility] Organization [facility] Address Unknown Phone Unavailable Care Team Providers Care Track Moving Machine Operator Name Role Phone Bernarda Cervantes APRN-OPTICAL ADVISOR Unavailable Beryl Shi MD PCP Ramin Wang MD Unavailable Bert Kaiser MD Unavailable Reason for Visit * Reason Comments Care Coordination * Consult, Test & Treat (Routine) - Pending Review Diagnoses / Procedures Referred By Contact Referred To Conta ct Specialty Diagnoses Paroxysmal atrial fibrillation (HCC) Occlusion and stenosis of bilateral carotid arteries Mixed hyperlipidemia Hypertensive disorder Chronic systolic (congestive) heart failure (HCC) Essential (primary) hypertension Raghu Palma MD [address] [place] [address] Cardiology Referral ID Status Reason Start Date Expiration Visits Vi sits Date Requested Authorized [id number] Pending 05/21/2022 05/21/2023 1 1 Review Encounter Details Care Team Description Date Type Department Madhu Agrawal MD [address] [facility] [place] [address] Care Coordination 07/02/2022 Office Visit Cardiovascular Medi cine: 1:30 PM [facility] [place] [address] [place] [address] Social History Date Tobacco Use Types Packs/Day [...] have Coronavirus/COVID-19? documented as of this encounter Last Filed Vital Signs Reading Time Taken Comments Vital Sign 109/71 07/02/2022 1:28 PM CDT Blood Pressure 80 07/02/2022 1:28 PM CDT Pulse 36.3 C (97.4 F) 07/02/2022 1:28 PM CDT Temperature - - Respiratory Rate - - Oxygen Saturation - - Inhaled Oxygen Concentration 104.5 kg (230 lb 6.1 oz) 07/02/2022 1:28 PM CDT Weight - - Height - - Body Mass Index documented in this encounter Ordered Prescriptions Start Date End Date Prescription Sig Dispensed Refills 07/05/2022 07/06/2022 flecainide (TAMBOCOR) 50 Take 1.5 180 tablet 3 mg tablet tablets by mouth twice daily. 07/02/2022 07/05/2022 flecainide (TAMBOCOR) 50 Take 1.5 180 tablet 3 mg tablet tablets by mouth twice daily. 07/02/2022 07/02/2022 flecainide (TAMBOCOR) 50 Take 1.5 180 tablet 3 mg tablet tablets by mouth twice daily. documented in this encounter Progress Notes * Madhu Agrawal MD - 07/02/2022 1:30 PM CDT Date of Service: 07/02/2022 Gianluca Kimble is a 67 y.o. male. HPI I had the pleasure of seeing your patient Gianluca Kimble as a part of the [facility] at [facility] in [place] today for initial Electrophysiolgy Consultation regarding his Paroxysmal Atrial Fibrillati on. He is typically followed and was referred by my colleague Dr. Palma, his primary president [place]. Mr. Kimble is an exceptionally pleasant 67 y.o. male. All data in this note, including the past medical history, was newly collected today. His PMHx briefly includes: Persistent Atrial Fibrillation; Hx Congestive Heart F ailure; Essential Hypertension; Hyperlipidemia; Nonobstructive Carotid Artery Di sease; Pulmonary Hypertension; COPD; Hx DVT and PE (02/2020) at Time of COVID 19 Infection; Hypothyroidism; COVID-19 Infection (02/2020); Hx Hepatitis C; Depres delma He has a [id number] score of 2: Age>65; HTN NOTE: Unable to tolerate Amiodarone d/t severe COPD, unable to use class IC ant iarrhythmics at this time as patient refusing stress test, apparently also saurabh rn for Multaq use due to history of hepatitis. DETAILED UPDATED PMHx: -- 2007: Normal Cardiac Catheterization: -- 09/2019: Echocardiogram: Showing normal LV size, EF 45 to 50%, mild to modera te tricuspid regurgitation, PA pressure 35 to 40 mmHg. -- 02/2020: AFIB post COVID-19 Infection -- 04/2020: CT Chest: Severe emphysema with mild atelectasis. -- 02/2020: DVT and PEE at [facility] -- 04/08/2020: CT Chest: Severe emphysema with extensive dendriform pulmonary o ssification in the lung bases. Airspace opacity in the posterior right upper lo be may represent atelectasis or pneumonia but a three-month follow-up is recomm ended to ensure it resolves. Tiny right pleural effusion. -- 06/2021: Carotid Duplex: Nonobstructive carotid artery disease -- 12/18/2021: FLP: Total cholesterol 123, HDL 35, triglyceride 95, LDL 69. -- 04/26/2022: OV (Dr. Palma): He is having increasing episodes of AFIB. V rates are well controlled. Discussed AA therapy versus accepting his AFIB as Permanen t. He has multiple risk factors for CAD. The patient has agreed to a stress test . We will proceed with an Echocardiogram. -- 05/18/2022: Echocardiogram: LV size is normal. Wall thickness is mild to mod erately increase. Mild concentric hypertrophy. Systolic function is normal. Es timated EF 60-65%. No regional wall motion abnormalities noted. Trivial AV regur gitation. Pulmonary artery systolic pressure 20-25 mmHg. NORMAL LA size reported . His HPI for today is discussed in greater detail as a part of the Assessment and Plan below. FHx, SHx and ROS documented and I have reviewed. Most pertinent ROS is included /discussed throughout the note, e.g. HPI and A/P. ASSESSMENT AND PLAN: -- CURRENTLY IN Persistent Atrial Fibrillation -- Hx Congestive Heart Failure -- Essential Hypertension -- Hyperlipidemia -- Nonobstructive Carotid Artery Disease -- Pulmonary Hypertension -- COPD -- Hx DVT and PE (02/2020) -- Hypothyroidism -- COVID-19 Infection (02/2020) -- Hx Hepatitis C -- Depression Mr. Kimble has noted is CURRENTLY in Persistent Atrial Fibrillation. We had a lengthy discussion regarding Atrial Fibrillation, the pathophysiology, the mechanism, and therapeutic options. We discussed what I call the 3 R's: The Rhythm being abnormal; the Rate being Rapid; and the Risk of stroke. Regarding Rhythm--he is currently in persistent AFIB. The question really is whether he a will have improvement in his symptoms if we restore and maintain sinus rhythm. There is reluctance to use Amiodarone d/t severe COPD, as well as concern for Mu ltaq use due to history of hepatitis. 1C agents not been considered in the past as the patient has been refusing stres s imaging. However he apparently now has agreed. Stress imaging is currently p ending. Dr. Palma has discussed with him whether to accept his A-fib is permanent or pro ceed with A-fib ablation. We discussed rhythm-control strategies to taking antiarrhythmic Therapy, or purs uing an AFIB Ablation procedure. We discussed that the 5 year cure rate of the procedure for him is approximately 60-70%, and to achieve that rate sometimes require a second redo or touchup pro cedure. We also discussed that the incidence of needing a repeat procedure is generally approximately 20%-30%. We discussed the procedure and risks of an AFIB Ablation procedure to include, b ut not limited to: , NE, stroke, cardiac perforation, pulmonary vein steno sis, diaphragmatic paralysis via phrenic nerve injury, catheter entrapment in th e mitral valve or other location, bleeding, infection, DVT, vascular injury, or worsening atrial arrhythmias. There is also a low risk of possible vagal nerve i njury, esophageal ulceration, atrial esophageal fistula, atrial bronchial fistul a, or even possible need for major surgery to address one of these complications . We discussed the procedure is done under general anesthesia. We discussed that recurrent AFIB in the first 2-3 months post procedure is a par t of the healing process, and has no impact on the overall longer term success o f the ablation. Therefore, we use an Antiarrhythmic Drug for the first 3 months post-procedure i n an effort to reduce the incidence of these events. We again, also discussed the possible need for a repeat AFIB Ablation procedure. The incidence of needing a repeat procedure is generally approximately 20%-30%. Finally, we discussed the differences between an RFA vs Cryo-Ablation. I recomme nded we do a Cryo-Ablation. He expressed a verbal understanding of these details, the procedure, and the ris ks. See detailed plan outlined below Regarding Rate--he is on diltiazem CD with adequate ventricular rate control Regarding Risk of Stroke--he is on Xarelto. He is taking it with food. He clai ms compliance for 3 weeks plus without having missed a dose. Denies any bleeding issues. Denies of blood in the urine or blood in the stool. See additional plan details below. PLAN: -- Has been compliant with his Xarelto for at least 3 weeks and he does take it with food -- We will initiate Flecainide 75 mg twice daily -- In roughly 2 weeks he will undergo DC synchronous cardioversion to restore si nus rhythm and hopefully maintain it. -- Once sinus rhythm is restored he will be very attentive to see if he "feels b argelia" with less symptoms of shortness of breath, SAHNI, fatigue, and draggy feeli ng. --IF he does not maintain sinus rhythm long enough on flecainide to assess wheth er he is improvement in the symptoms then I would discontinue flecainide, hospit alvino him for Tikosyn, and repeat the process --The stack is to see if we can make him feel better maintaining sinus rhythm. -- IF he has significant symptom improvement in sinus rhythm that I would try an d maintain sinus rhythm. I would continue his flecainide and plan for AFIB Cryo Ablation. --IF he does not notice any significant symptom improvement in sinus rhythm, the n I would continue sinus rhythm for some period of time, but if/when he is recur rence of AFIB would likely accept that is permanent and continue rate control an d chronic anticoagulation. --He will of course continue his diltiazem -- He will course continue her Xarelto and take it with food -- Since he is on anticoagulation, I have asked him to monitor for any signs or symptoms of bleeding, including blood in the stool or urine, etc and to contact his PMD if any occurs. -- I have asked him to Check his BP (Blood Pressure) daily and vary the time of day he checks it. -- We discussed that exercise helps with his blood pressure and he should try to get at least 30 minutes of moderate intensity exercise at least 4 days a week. -- We discussed the importance of a low salt diet up to 2 grams daily. -- We discussed that his BP Goal to be consistently below 140/90 mmHg. -- We discussed if his blood pressure is above the parameters described, to cont act us or his primary care doctor's office. Total Time Today was 96 minutes in the following activities: Preparing to see th e patient, Obtaining and/or reviewing separately obtained history, Performing a medically appropriate examination and/or evaluation, Counseling and educating th e patient/family/caregiver, Ordering medications, tests, or procedures, Referrin g and communication with other health customer care voice consultant (when not separately re ported) and Documenting clinical information in the electronic or other health r ecord Mr. Kimble was educated regarding plan of care. He was instructed to call our office with any questions or concerns, as well as to notify us of any new or wor sening symptoms. He verbalized understanding. I appreciate the opportunity to participate in the care of your patient. Please do not hesitate to contact me directly if you have any questions or furth er insights into his care. We will follow-up with Dr. Palma to undergo cardioversion, etc. as noted above. If he has symptomatic improvement Dr. Palma will contact me to proceed with AFIB Ablation Vitals: 07/02/22 1328 BP: 109/71 BP Source: Arm, Left Upper Pulse: 80 Temp: 36.3 C (97.4 F) Weight: 104.5 kg (230 lb 6.1 oz) There is no height or weight on file to calculate BMI. Past Medical History Patient Active Problem List Diagnosis Date Noted History of CHF (congestive heart failure) 06/29/2022 Per OV note on 04/26/[address] Raghu Palma ([facility]) 08/20/2017 - ECHO: ([facility]) Concentric LVH with good LV systolic funct ion with EF = 60%. Trivial MVI and TVI with borderline elevated right heart pre ssures. 10/03/2019 - ECHO: ([facility]) LV cavity size i s increased. LV wall thickness is moderately increased. LV systolic function i s mildly reduced. EF ~ 45-50%. There were no regional wall motion abnormalitie s identified. LV diastolic function parameters are normal for the patient's age . Mild to moderate TVR. PASP is in the range of 35-40mmHg. DVT (deep venous thrombosis) (HCC) 06/29/2022 Per OV note on 04/26/[address] Raghu Palma ([facility]) 03/03/2020 - Bilateral Venous Doppler ([facility]) The left leg veno us doppler is normal. There is isolated thrombosis in the right anterior tibial vein, so there is isolated right left DVT. Pulmonary embolism (HCC) 06/29/2022 Per OV note on 04/26/[address] Raghu Palma ([facility]) 03/01/2020 - CTA Pulmonary Angiogram: ([facility]) The study is pos itive for a small PE in both the right middle lobe artery and right lower lobe a rtery. There is a small area of infarction in the RLL. There is also some area of PNA in the RLL posteriorly. History of COVID-19 06/29/2022 Per OV note on 04/26/[address] Raghu Palma ([facility]) Atrial fibrillation (HCC) 06/29/2022 Per OV note on 04/26/[address] Raghu Palma ([facility]) 03/03/2020 - ECHO: ([facility]) Technically a difficult study. Gaby bal LV systolic function appears to be at the lower limit of normal with an EF ~ 50%. No significant valvular regurgitation or stenosis. PASP ~ 25mmHg. 05/18/2022 - ECHO: ([facility]) LV cavity size i s normal. LV wall thickness is mildly to moderate increased. There is mild con centric LVH. LV systolic function is normal. EF ~ 60-65%. There were no regio nal wall motion abnormalities identified. Trivial AVR. PASP is in the range of 20-25mmHg. 06/21/2022 - MPI: ([facility]) Baseline AF with frequent PVCs noted. Patient tolerated Lexiscan well. Fixed defect involving t he inferior wall and apex, no significant ischemia was noted. Normal LV size, E F = 62%, AF will affect the gated images. Primary hypertension 06/29/2022 Per OV note on 04/26/[address] Raghu Palma ([facility]) Carotid artery disease (HCC) 06/29/2022 Per OV note on 04/26/[address] Raghu Palma ([facility]) 06/16/2021 - Carotid Artery Ultrasound: ([facility] [place]) Right: Mild 1-39% i nternal carotid artery stenosis, nonobstructive disease. Antegrade vertebral fl ow. Left: Mild 1-39% internal carotid artery stenosis, nonobstructive disease. Vertebral flow not visualized. Hepatitis C 07/22/2011 Pulmonary emphysema (HCC) 07/22/2011 04/08/2020 - Plethysmography: ([facility]) There is a severe obstructive lung defect. The airway obstruction is confirmed by the decrease in flow rate at peak flow and flow at 25%, 50% and 75% of the f low volume curve. An obstructive lung defect is confirmed by an increased RV. T here is a severe decrease in diffusing capacity, suggesting emphysema in the pre sence of an obstructive lung defect. FEF 25-75 changed by 21%. This is interpr eted as a mild response to bronchodilator. Cardiovascular disease 07/22/2011 Hypothyroidism 07/22/2011 Depression 07/22/2011 Alcohol abuse 07/22/2011 Review of Systems Cardiovascular: Positive for irregular heartbeat. Physical Exam Constitutional: He is in no acute distress, resting comfortably. Skin/Integument: Warm and dry. Eyes: PERRL, sclera are non-icteric and no xanthelasmas noted. ENT: Hearing is intact. Heme/Lym/Immun: Supple neck, without thyromegaly. Respiratory-Pulmonary/Chest: Effort normal and breath sounds normal. No respira tory distress or accessory muscle use. No obvious tracheal deviation. Poor insp iratory effort/decreased air movement and some inspiratory crackles in the right base improving with deep breathing Cardiovascular: No evidence of increased jugular venous pressure, carotids are 2+/4+ equal bilaterally. Irregularly irregular rhythm, S1, S2. I do not apprec iate any significant murmur today although his heart sounds are significantly di stant. No heaves, thrills or rubs. Musc/Skeletal-Extremities: Without significant peripheral edema. With what appe ars to be full ROM Neuro: Patient is alert and oriented to person, place, and time. Psych: Patient does not appear anxious, he appears appropriate, with normal non -pressured speech and what appears to be appropriate judgement Cardiovascular Studies ECG today documents atrial fibrillation with an isolated PVC, left axis deviatio n, poor R wave progression with an average rate of 73 bpm. Cardiovascular Health Factors Vitals BP Readings from Last 3 Encounters: 07/02/22 109/71 07/22/11 136/85 07/16/11 119/76 Wt Readings from Last 3 Encounters: 07/02/22 104.5 kg (230 lb 6.1 oz) 07/22/11 90.7 kg (200 lb) 07/16/11 89.4 kg (197 lb) BMI Readings from Last 3 Encounters: 07/22/11 27.89 kg/m 07/16/11 27.87 kg/m Smoking Social History Tobacco Use Smoking Status Former Types: Cigarettes Quit date: 09/07/2006 Years since quittin.8 Smokeless Tobacco Not on file Lipid Profile No results found for: CHOL No results found for: HDL No results found for: LDL No results found for: TRIG Blood Sugar No results found for: HGBA1C No results found for: GLU, GLUF, GLUPOC Problems Addressed Today Encounter Diagnoses Name Primary? Persistent atrial fibrillation (HCC) Yes Pulmonary embolism, unspecified chronicity, unspecified pulmonary embolism t ype, unspecified whether acute cor pulmonale present (HCC) History of COVID-19 Primary hypertension Pulmonary emphysema, unspecified emphysema type (HCC) Current Medications (including today's revisions) ALBUTEROL SULFATE (PROAIR HFA IN) Inhale by mouth as Needed. carvedilol (COREG) 12.5 mg tablet Take one tablet by mouth twice daily with meals. cetirizine (ZYRTEC) 10 mg tablet Take one tablet by mouth every morning. citalopram (CELEXA) 20 mg tablet Take one tablet by mouth daily. dilTIAZem XC (TIAZAC) 240 mg capsule Take one capsule by mouth daily. kfnemwarnqq-fptuzrkhc-aqioirof (TRELEGY ELLIPTA) 100-62.5-25 mcg inhaler Inh wendy one puff by mouth into the lungs daily. LEVOTHYROXINE SODIUM (LEVOTHYROXINE PO) Take 0.05 mcg by mouth daily. lisinopril (PRINIVIL, ZESTRIL) 40 mg tablet Take one tablet by mouth daily. MELATONIN PO Take by mouth. mirtazapine (REMERON) 15 mg tablet Take one tablet by mouth at bedtime daily . montelukast (SINGULAIR) 10 mg tablet Take one tablet by mouth at bedtime boom ly. other medication daily. Spiriva 1 capsule OXYGEN-AIR DELIVERY SYSTEMS [facility] Use as directed. 3 ltr oxygen QUEtiapine (SEROQUEL) 50 mg tablet Take one tablet by mouth twice daily. rivaroxaban (XARELTO) 20 mg tablet Take one tablet by mouth daily. Take with food. ROFLUMILAST (DALIRESP PO) Take 500 mcg by mouth daily. rosuvastatin (CRESTOR) 5 mg tablet Take one tablet by mouth daily. venlafaxine XR (EFFEXOR XR) 75 mg capsule Take one capsule by mouth daily. T daniel with food. documented in this encounter Miscellaneous Notes * Patient Instructions - Lona Ramos RN - 07/02/2022 1:30 PM CDT START Flecainide 75mg Twice Daily In roughly 2 weeks you will undergo DC synchronous cardioversion to restore sinu s rhythm and hopefully maintain it. Following your cardioversion, please be attentive to see if you experience less symptoms of shortness of breath, SAHNI, fatigue, and draggy feeling. Continue Diltiazem and Xarelto (with food) -Check your BP (Blood Pressure) daily and you may vary the time of day you check it. -Monitor your blood pressure regularly -Consider obtaining an automatic home blood pressure cuff if you don't already h ave one. -Try to follow a low salt diet. -If you smoke, make an honest effort to quit. -Exercise helps with your blood pressure. Try to get at least 30 minutes of mod erate intensity exercise at least 4 days a week. -Your desired BP is with the top # less than 130 and bottom # less than 85. -Call our office or your PCP if your blood pressure remains at or above 140/90 b ut PREFER 130/80 mm Hg consistently. -If you have questions about your blood pressure readings, please contact the arvind pereyra. -- Since you are on anticoagulation, monitor for any signs or symptoms of bleedi ng, including blood in the stool or urine, etc and to contact your Primary Care Physician if any occurs. In order to provide you the best care possible we ask that you follow up as isha vides: For non-urgent questions please contact us through your [employer] account. For all medication refills please contact your pharmacy or send a request ricky Larson. For all questions that may need to be addressed urgently please call the nursing triage voicemail at [phone] Tuesday - Tuesday 8-5 only. Please leave a detai led message with your name, date of , and reason for your call. Please allow ~ 10 business days for the results of any testing to be reviewed. Travis mcguire call our office if you have not heard from a nurse within this time frame. documented in this encounter Plan of Treatment Not on filedocumented as of this encounter Visit Diagnoses Diagnosis Persistent atrial fibrillation (HCC) - Primary Atrial fibrillation Pulmonary embolism, unspecified chronic ity, unspecified pulmonary embolism type, unspecified whether acute cor pulmonale present (HCC) History of COVID-19 Primary hypertension Unspecified essential hypertension Pulmonary emphysema, unspecified emphys do type (HCC) * Addendum Note - Lona Ramos RN - 07/02/2022 1:30 PM CDT Addended by: LONA RAMOS on: 07/02/2022 02:44 PM Modules accepted: Orders * Addendum Note - Lona Ramos RN - 07/02/2022 1:30 PM CDT Addended by: LONA RAMOS on: 07/02/2022 02:49 PM Modules accepted: Orders * Addendum Note - Armen Atkinson RN - 07/02/2022 1:30 PM CDT Addended by: ARMEN ATKINSON on: 07/05/2022 11:11 AM Modules accepted: Orders documented in this encounter Discontinued Medications Start Date End Date Medication Sig Discontinue Reason 07/02/2022 07/02/2022 flecainide (TAMBOCOR) 50 Take 1.5 Reorder mg tablet tablets by mouth twice daily. 07/02/2022 07/05/2022 flecainide (TAMBOCOR) 50 Take 1.5 Reorder mg tablet tablets by mouth twice daily. documented as of this encounter Historical Medications * This list may reflect changes made after this encounter. Start Date End Date Medication Sig Dispensed Refills rivaroxaban (XARELTO) 20 Take one 0 mg tablet tablet by mouth daily. Take with food. venlafaxine XR (EFFEXOR Take one 0 XR) 75 mg capsule capsule by mouth daily. Take with food. fgnfnbqaent-uwkehsxkt-rqk Inhale one 0 anter (TRELEGY ELLIPTA) puff by mouth 100-62.5-25 mcg inhaler into the lungs daily. rosuvastatin (CRESTOR) 5 Take one 0 mg tablet tablet by mouth daily. QUEtiapine (SEROQUEL) 50 Take one 0 mg tablet tablet by mouth twice daily. OXYGEN-AIR DELIVERY Use as 0 SYSTEMS MISC directed. 3 ltr oxygen montelukast (SINGULAIR) Take one 0 10 mg tablet tablet by mouth at bedtime daily. mirtazapine (REMERON) 15 Take one 0 mg tablet tablet by mouth at bedtime daily. MELATONIN PO Take by 0 mouth. dilTIAZem XC (TIAZAC) 240 Take one 0 mg capsule capsule by mouth daily. cetirizine (ZYRTEC) 10 mg Take one 0 tablet tablet by mouth every morning. added in this encounter Care Teams Start Date End Date Track Moving Machine Operator Relationship Specialty 07/16/11 Beryl Shi MD PCP - General [address] [place] [address] [address] [place] [address] 06/30/11 Bernarda Cervantes APRN-OPTICAL ADVISOR Transplant Hepatology [address] [facility] [address] [place] [address] 07/16/11 Ramin Wang MD Transplant Hepatology [address] [facility] [id number] [place] [address] 08/23/12 Bert Kaiser MD Trans[facility] Hep[facility]ology [address] [place] [address] documented as of this encounter
--- NOTE | 2022-07-22 08:38 | Consultation-Cardiology ---
HPI-Cardiology Cardiology Consultation Date of Consultation 07/22/22 Date of Admission Time Seen by Provider: 08:35 Indication: Atrial fibrillation HPI 67-year-old gentleman with a history of atrial fibrillation, failed multiple treatment modality. Patient is admitted for loading with Tikosyn. He denied any chest pain. He uses oxygen due to severe emphysema, COPD and has underlying pulmonary hypertension. History of chest pain. Home Medications & Allergies Allergies: Coded Allergies: No Known Drug Allergies (Unverified , 04/08/20) Home Medication List Reviewed: Yes EJS-Euxiic-Sqctgb Hx Patient Social History Marital Status: single Employed/Student: retired Have you traveled recently?: No Alcohol Use?: No Substance type: Caffeine, Nicotine Past Medical History Discussed below Family Medical History Significant Family History: No Pertinent Family Hx Review of Systems-General Review of Systems Constitutional: no symptoms reported, see HPI EENTM: see HPI, no symptoms reported Respiratory: see HPI, cough, dyspnea on exertion; No hemoptysis, No orthopnea, No phlegm, No short of breath, No stridor, No wheezing, No other Cardiovascular: see HPI; No chest pain, No edema, No Hx of Intervention; palpitations; No syncope, No vascular heart diseas, No other Gastrointestinal: no symptoms reported, see HPI Genitourinary: no symptoms reported, see HPI Musculoskeletal: no symptoms reported, see HPI Skin: no symptoms reported, see HPI Psychiatric/Neurological: No Symptoms Reported, See HPI Reviewed Test Results Reviewed Test Results Lab Labs are pending Physical Exam Physical Exam Vital Signs Capillary Refill : Height, Weight, BMI Height: 5'11.00" Weight: 206lbs. oz. [id number]; 31.88 BMI Method: General Appearance: No Apparent Distress, WD/WN Eyes: Bilateral Eye Normal Inspection, Bilateral Eye PERRL, Bilateral Eye EOMI HEENT: PERRL/EOMI, TMs Normal, Normal ENT Inspection, Pharynx Normal, Moist Mucous Membranes Neck: Full Range of Motion, Normal Inspection, Non Tender, Supple, Carotid Bruit Respiratory: Chest Non Tender, Normal Breath Sounds, No Accessory Muscle Use, No Respiratory Distress Cardiovascular: Regular Rate, Rhythm, No Edema, No Gallop, No JVD, No Murmur, Normal Peripheral Pulses Gastrointestinal: Normal Bowel Sounds, No Organomegaly, No Pulsatile Mass, Non Tender, Soft Back: Normal Inspection, No CVA Tenderness, No Vertebral Tenderness Extremity: Normal Capillary Refill, Normal Inspection, Normal Range of Motion, Non Tender, No Calf Tenderness, No Pedal Edema Neurologic/Psychiatric: Alert, Oriented x3, No Motor/Sensory Deficits, Normal Mood/Affect Skin: Normal Color, Warm/Dry Lymphatic: No Adenopathy A/P-Cardiology Admission Diagnosis Atrial fibrillation Hypertension Hyperlipidemia COPD Assessment/Plan Paroxysmal atrial fibrillation, Had atrial fibrillation after having COVID-19 infection in February 2020 at [facility]. Maintained on diltiazem and Xarelto. Tolerating medication well. EKG was done during the visit today showing rate controlled afib. Patient reports he has had more afib recently. Unable to tolerate Amiodarone d/t severe COPD, Patient was concerned about using Multaq especially with his history of hepatitis. Currently is becoming persistent/permanent atrial fibrillation, patient is tolerating it well. We discussed continuing with rate control instead of rhythm control and he is maintained on oral anticoagulation. We discussed the possibility of A-fib ablation. Was referred to Dr. Agrawal and started on Flecainide. Patient d/c'd Flecainide d/t dizziness and near syncope. Patient is admitted for initiation of Tikosyn treatment. I will evaluate tolerance and response. History of congestive heart failure, workup for the last 5 years showed normal LV function. His heart failure has resolved. Continue to monitor Echocardiogram done in May 2022 showing mild to moderately increased left ventricle, trivial AR, PA 20-25mmHg. Stress test done June 2022 showing baseline atrial fibrillation with frequent PVCs noted. Patient tolerated Lexiscan well. Fixed defect involving the inferior wall and apex, no significant ischemia was noted. Normal left ventricular size, ejection fraction 62%, atrial fibrillation will affect the gated images. SSS 12, SDS 0, TID 0.96 Status post DVT and PE occurred in February 2020 at [facility] after having COVID-19 infection, maintained on Xarelto History of pulmonary hypertension, 2D Echo done May 2022 showing PA 20-25mmHg. COPD, severe emphysema, maintained on oxygen, CT scan was done in April 2020 reported as severe emphysema with mild atelectasis. Followed and managed by primary care physician History of chest pain, nonspecific etiology, normal cardiac catheterization 2007. Currently asymptomatic, planning to evaluate stress test Hypertension, good control on current medication. Continue to monitor Hyperlipidemia, has been maintained on rosuvastatin 5 mg daily Lipid profile done on December 18, 2021 with total cholesterol 123, HDL 35, triglyceride 95, LDL 69. Continue to monitor Nonobstructive carotid artery stenosis per carotid duplex done June 2021. Hypothyroidism, followed and managed by primary care physician. History of hepatitis C. History of depression. GABBY HENAO MD July 22, 2022 08:38
[2022-07-22 08:50] LABS: HEMATOCRIT 41 % (40-54); HEMOGLOBIN 14.3 g/dL (13.3-17.7); MEAN CORPUSCULAR HEMOGLOBIN 31 pg (25-34); MEAN CORPUSCULAR HGB CONC 35 g/dL (32-36); MEAN CORPUSCULAR VOLUME 90 fL (80-99); MEAN PLATELET VOLUME 8.9 fL (9.0-12.2); PLATELET COUNT 276 10^3/uL (130-400); WHITE BLOOD COUNT 5.7 10^3/uL (4.3-11.0)
[2022-07-22 09:00] LABS: ALBUMIN 3.9 GM/DL (3.2-4.5); POTASSIUM 4.4 MMOL/L (3.6-5.0)
[2022-07-22] MEDS ORDERED: amLODIPine 5 MG (NORVASC) TAB PO SCH (09:00)
[2022-07-22] MEDS ORDERED: lisINopril 20 MG (PRINIVIL) TABLET PO SCH ×2 (09:00→20:00)
[2022-07-22 09:01] LABS: CALCIUM 8.9 MG/DL (8.5-10.1)
[2022-07-22 09:03] LABS: TOTAL PROTEIN 7.5 GM/DL (6.4-8.2)
[2022-07-22 09:04] LABS: BILIRUBIN,TOTAL 0.5 MG/DL (0.1-1.0)
[2022-07-22 09:06] LABS: CREATININE SERUM 0.97 MG/DL (0.60-1.30)
[2022-07-22] MEDS ORDERED: QUET50TA23 PO (10:05)
[2022-07-22] MEDS ORDERED: IBUP-2473 PO (10:05)
[2022-07-22] MEDS ORDERED: CHOL10004 PO (10:05)
[2022-07-22] MEDS ORDERED: ROSU5TAB13 PO (10:05)
[2022-07-22] MEDS ORDERED: MIRT-68 PO (10:05)
[2022-07-22] MEDS ORDERED: DILT240C91 PO (10:05)
[2022-07-22] MEDS ORDERED: LEVO100T7 PO (10:05)
[2022-07-22] MEDS ORDERED: CARV25TA PO (10:05)
[2022-07-22] MEDS ORDERED: VENL75CA93 PO (10:05)
[2022-07-22] MEDS ORDERED: OMEG1CAP16 PO (10:05)
[2022-07-22] MEDS ORDERED: MELA5LIQ2 PO (10:05)
[2022-07-22] MEDS ORDERED: FLUT1BLS3 INH (10:05)
[2022-07-22] MEDS ORDERED: RIVA20TA PO (10:05)
[2022-07-22] MEDS ORDERED: LISI20TA26 PO (10:05)
[2022-07-22] MEDS ORDERED: MONT-40 PO (10:05)
[2022-07-22] MEDS ORDERED: CETI10TA17 PO (10:05)
[2022-07-22] MEDS ORDERED: ALBU18HF2 INH ×2 (10:05→10:08)
--- NOTE | 2022-07-22 10:15 | History & Physical ---
History of Present Illness HPI/Chief Complaint CC: Medical management of COPD O2 dependence while receiving Tikosyn infusion HPI: This is a 67yoWM clinic patient of Dr Shi and Dr Palma who is being admitted for Tikosyn infusion. Currently he is without complaints and denies pain or dyspnea. He wears 3L/min O2 at home and he remains on that here. Son at bedside. Eating well. No falls reported. Flecainide did not work well for the patient and caused issues. Source: patient, family, RN/MD, old records Exam Limitations: no limitations Date Seen 07/22/22 Time Seen by a Provider: 11:00 Attending Physician Beryl Shi MD PCP Admitting Physician: Raghu Palma MD Attending Physician: Raghu Palma MD Referring Physician Date of Admission July 22, 2022 at 07:55 Home Medications & Allergies Home Medications Reviewed patient Home Medication Reconciliation performed by pharmacy medication reconciliations instrumentation technician and/or nursing. Patients Allergies have been reviewed. Allergies Allergies Coded Allergies ramipril (Verified Allergy, Unknown, DRY COUGH, 07/22/22) Past Ghdmnmf-Xdttsn-Tmuwud Hx Past Med/Social Hx: Reviewed Nursing Past Med/Soc Hx, Reviewed and Corrections made Patient Social History Marrital Status: single Employed/Student: retired Alcohol Use: Denies Use Smoking Status: Former Smoker Former Smoker, Quit: Jun 21, 2007 Past Medical History Respiratory: COPD, Emphysema Cardiac: Atrial Fibrillation, High Cholesterol, Hypertension Family History No Pertinent Family Hx Review of Systems Constitutional: see HPI, malaise, weakness EENTM: no symptoms reported Respiratory: no symptoms reported Cardiovascular: no symptoms reported Gastrointestinal: no symptoms reported Genitourinary: no symptoms reported Musculoskeletal: no symptoms reported Skin: no symptoms reported All Other Systems Reviewed Negative Unless Noted: Yes Physical Exam Physical Exam Vital Signs Vital Signs - First Documented 07/22/22 07/22/22 08:06 11:59 Temp 36.5 Pulse 56 Resp 12 B/P (MAP) 142/104 (117) Pulse Ox 97 O2 Delivery Nasal Cannula O2 Flow Rate 3.00 Capillary Refill : Height, Weight, BMI Height: 5'11.00" Weight: 206lbs. oz. 93.433310qk; 31.88 BMI Method: General Appearance: No Apparent Distress, WD/WN, Chronically ill, Obese Eyes: Bilateral Eye Normal Inspection, Bilateral Eye PERRL, Bilateral Eye EOMI HEENT: PERRL/EOMI, Normal ENT Inspection, Pharynx Normal, Moist Mucous Membranes Neck: Full Range of Motion, Normal Inspection, Non Tender, Supple, Carotid Bruit Respiratory: Chest Non Tender, Normal Breath Sounds, No Accessory Muscle Use, No Respiratory Distress Cardiovascular: No Edema, No Gallop, No JVD, No Murmur, Normal Peripheral Pulses, Irregularly Irregular Gastrointestinal: Normal Bowel Sounds, No Organomegaly, No Pulsatile Mass, Non Tender, Soft Back: Normal Inspection, No CVA Tenderness, No Vertebral Tenderness Extremity: Normal Capillary Refill, Normal Inspection, Normal Range of Motion, Non Tender, No Calf Tenderness, No Pedal Edema Neurologic/Psychiatric: Alert, Oriented x3, No Motor/Sensory Deficits, Normal Mood/Affect Skin: Normal Color, Warm/Dry Lymphatic: No Adenopathy Results Results/Procedures Labs Laboratory Tests 07/22/22 08:44 Patient resulted labs reviewed. Assessment/Plan Admission Diagnosis Assessment: Atrial fib difficult to control started on Tikosyn infusion COPD O2 dependent PHTN HTN HLP Hypothyroidism Obesity Plan: IV Tikosyn Home meds Admission Status: Inpatient Order (span 2 midnights) Reason for Inpatient Admission: MARBELLA Martinez DO July 22, 2022 10:15
[2022-07-22] MEDS: DOFETILIDE 500 MCG PO SCH ×2 (10:45→19:40)
[2022-07-22 11:59] VITALS: BP 142/104
[2022-07-22] MEDS ORDERED: diphenhydrAMINE 50 MG/ML INJ (BENADRYL) IVP PRN (12:00)
[2022-07-22] MEDS ORDERED: ONDANSETRON 4 MG/2 ML (SDV) Z0FRAN IV PRN (12:00)
[2022-07-22] MEDS ORDERED: BISACODYL 10 MG SUPP (DULCOLAX) PR PRN (12:00)
[2022-07-22] MEDS ORDERED: CALCIUM CARBONATE 500 MG (TUMS) TAB.CHEW PO PRN (12:00)
[2022-07-22] MEDS ORDERED: ANTACID SUSP 30 ML UDC (MYLANTA) PO PRN (12:00)
[2022-07-22] MEDS ORDERED: MELATONIN 3 MG TABLET PO PRN (12:00)
[2022-07-22] MEDS ORDERED: LACTULOSE SYRUP 10GM/15ML (ENULOSE) 30ML UDC PO PRN (12:00)
[2022-07-22] MEDS ORDERED: diphenhydrAMINE 25 MG TAB (BENADRYL) PO PRN (12:00)
[2022-07-22] MEDS ORDERED: ONDANSETRON 4 MG (ZOFRAN) ORAL DISSOLVE TAB PO PRN (12:00)
[2022-07-22] MEDS ORDERED: ACETAMINOPHEN 325 MG TABLET PO PRN (12:00)
[2022-07-22] MEDS ORDERED: polyethylene glycoL POWDER 17 GM (MIRALAX) PACK PO PRN (12:00)
[2022-07-22] MEDS ORDERED: MILK OF MAGNESIA 400 MG/5 ML 30 ML UDC PO PRN (12:00)
[2022-07-22] MEDS ORDERED: HYDROmorphone 2 MG/ML VIAL (DILAUDID) IV PRN (12:00)
[2022-07-22 13:13] VITALS: BP 142/104
[2022-07-22] MEDS ORDERED: RT-ALBUTEROL/IPRATROPIUM 3 ML (DUONEB) VIAL INH PRN (13:30)
[2022-07-22] MEDS ORDERED: IBUPROFEN TABLET 200 MG TAB PO PRN (15:30)
[2022-07-22] MEDS ORDERED: RT-ALBUTEROL SULF 2.5 MG/3 ML PRE-MIX VIAL INH PRN (15:30)
[2022-07-22 16:34] VITALS: BP 122/77
[2022-07-22] MEDS ORDERED: PATIENT MAY USE OWN MEDS, ALL MC SCH (16:45)
[2022-07-22] MEDS ORDERED: RIVAROXABAN 20 MG TABLET (XARELTO) PO SCH (17:00)
[2022-07-22] MEDS ORDERED: FATTY ACIDS PO SCH (18:00)
[2022-07-22] MEDS ORDERED: OMEGA PO SCH (18:00)
[2022-07-22] MEDS ORDERED: [UNRECOGNIZED DRUG - OTHER] PO SCH (18:00)
[2022-07-22] MEDS ORDERED: FISH OIL PO SCH (18:00)
[2022-07-22] MEDS: OMEGA 3 (FISH OIL) 1000 MG CAP PO SCH (18:18)
[2022-07-22] MEDS: RIVAROXABAN 20 MG TABLET (XARELTO) PO SCH (18:18)
[2022-07-22] MEDS ORDERED: DOFETILIDE 250 MCG PO SCH (19:00)
[2022-07-22] MEDS: MELATONIN 10 MG TABLET PO SCH (20:00)
[2022-07-22] MEDS: MONTELUKAST 10 MG (SINGULAIR) TAB PO SCH (20:00)
[2022-07-22] MEDS: VITAMIN D3 25 MCG (1,000 UNITS) TABLET PO SCH (20:00)
[2022-07-22] MEDS ORDERED: NON-FORMULARY MEDICATION 1 EA EA (Melatonin 5 MG) PO SCH (20:00)
[2022-07-22] MEDS: ROSUVASTATIN 5 MG (CRESTOR) TABLET PO SCH (20:00)
[2022-07-22] MEDS ORDERED: NON-FORMULARY MEDICATION 1 EA EA (Mirtazapine 15 MG) PO SCH (20:00)
[2022-07-22] MEDS: MIRTAZAPINE 15 MG (REMERON) TAB PO SCH (20:00)
[2022-07-22] MEDS ORDERED: NON-FORMULARY MEDICATION 1 EA EA (Quetiapine Fumarate 50 MG) PO SCH (21:00)
[2022-07-22] MEDS ORDERED: ROSUVASTATIN 5 MG (CRESTOR) TABLET PO SCH (21:00)
[2022-07-22] MEDS: DOCUSATE SODIUM 100 MG (COLACE) CAP PO SCH (21:23)
[2022-07-22] MEDS: QUETIAPINE 50 MG PO SCH (21:24)
[2022-07-22] MEDS: SENNOSIDES 8.6 MG (SENOKOT) TAB PO SCH (21:24)
--- NOTE | 2022-07-23 04:50 | Progress Note ---
Subjective Date Seen by a Provider: July 23, 2022 Time Seen by a Provider: 11:00 Subjective/Events-last exam Overall doing well Cardioversion tomorrow never had one Meds tolerated Review of Systems General: Fatigue, Malaise Objective Exam Last Set of Vital Signs Vital Signs Date Time Temp Pulse Resp B/P (MAP) Pulse Ox O2 Delivery O2 Flow Rate FiO2 07/23/22 04:00 36.6 Nasal Cannula 3.00 07/23/22 01:00 63 07/22/22 20:00 14 97 Capillary Refill : I&O Intake and Output 07/23/22 00:00 Intake Total 980 ml Output Total 1650 ml Balance -670 ml Intake Oral 980 ml Output Urine Total 1650 ml # Voids 6 # Bowel Movements 1 Daily Weight Change No General: Alert, Oriented X3, Cooperative, No Acute Distress Lungs: Clear to Auscultation, Normal Air Movement Heart: Normal S1, Normal S2, No Murmurs, Other Psych/Mental Status: Mental Status NL, Mood NL Results Lab Laboratory Tests 07/22/22 08:44: White Blood Count 5.7, Red Blood Count 4.59, Hemoglobin 14.3, Hematocrit 41, Mean Corpuscular Volume 90, Mean Corpuscular Hemoglobin 31, Mean Corpuscular Hemoglobin Concent 35, Red Cell Distribution Width 12.5, Platelet Count 276, Mean Platelet Volume 8.9L, Sodium Level 140, Potassium Level 4.4, Chloride Level 103, Carbon Dioxide Level 29, Anion Gap 8, Blood Urea Nitrogen 12, Creatinine 0.97, Estimat Glomerular Filtration Rate 85, BUN/Creatinine Ratio 12, Glucose Level 141H, Calcium Level 8.9, Corrected Calcium 9.0, Total Bilirubin 0.5, Aspartate Amino Transf (AST/SGOT) 12, Alanine Aminotransferase (ALT/SGPT) 11, Alkaline Phosphatase 98, Total Protein 7.5, Albumin 3.9 Assessment/Plan Assessment/Plan Assess & Plan/Chief Complaint Assessment: Atrial fib difficult to control started on Tikosyn infusion COPD O2 dependent PHTN HTN HLP Hypothyroidism Obesity Plan: IV Tikosyn Home meds Cardioversion tomorrow MARBELLA ECHEVARRIA DO July 23, 2022 04:50
[2022-07-23 05:13] LABS: BASOPHILS # (AUTO) 0.1 10^3/uL (0.0-0.1); BASOPHILS % (AUTO) 1 % (0-10); EOSINOPHILS # (AUTO) 0.2 10^3/uL (0.0-0.3); EOSINOPHILS % (AUTO) 3 % (0-10); HEMATOCRIT 38 % (40-54); HEMOGLOBIN 13.4 g/dL (13.3-17.7); LYMPHOCYTES # (AUTO) 1.1 10^3/uL (1.0-4.0); LYMPHOCYTES % (AUTO) 17 % (12-44); MEAN CORPUSCULAR HEMOGLOBIN 32 pg (25-34); MEAN CORPUSCULAR HGB CONC 35 g/dL (32-36); MEAN CORPUSCULAR VOLUME 90 fL (80-99); MEAN PLATELET VOLUME 9.2 fL (9.0-12.2); MONOCYTES # (AUTO) 0.8 10^3/uL (0.0-1.0); MONOCYTES % (AUTO) 12 % (0-12); NEUTROPHILS # (AUTO) 4.4 10^3/uL (1.8-7.8); NEUTROPHILS % (AUTO) 67 % (42-75); PLATELET COUNT 252 10^3/uL (130-400); WHITE BLOOD COUNT 6.6 10^3/uL (4.3-11.0)
[2022-07-23 05:41] LABS: ALBUMIN 3.4 GM/DL (3.2-4.5); BILIRUBIN,TOTAL 0.4 MG/DL (0.1-1.0); CALCIUM 8.3 MG/DL (8.5-10.1); CREATININE SERUM 0.92 MG/DL (0.60-1.30); POTASSIUM 3.7 MMOL/L (3.6-5.0); TOTAL PROTEIN 6.7 GM/DL (6.4-8.2)
[2022-07-23] MEDS: LEVOTHYROXINE 100 MCG (LEVOTHROID) TAB PO SCH (06:36)
[2022-07-23] MEDS: VENlafaxine XR 75 MG (EFFEXOR XR) CAP PO SCH (06:37)
[2022-07-23 08:00] VITALS: BP 150/99
[2022-07-23] MEDS ORDERED: UMECLIDINIUM BROMIDE (INCRUSE ELLIPTA) 7'S IH SCH (08:00)
--- NOTE | 2022-07-23 08:01 | Cardiology Progress Note ---
Subjective Date Seen by Provider: July 23, 2022 Time Seen by Provider: 08:00 Subjective/Events-last exam Patient was seen at bedside, laying down comfortably. Feeling better Review of Systems General: No Chills, No Night Sweats, No Fatigue, No Malaise, No Appetite, No Other HEENT: No Head Aches, No Visual Changes, No Eye Pain, No Ear Pain, No Dysphasia, No Sinus Congestion, No Post Nasal Drip, No Sore Throat, No Other Pulmonary: No Dyspnea, No Cough, No Pleuritic Chest Pain, No Other Cardiovascular: No: Chest Pain, Palpitations, Orthopnea, Paroxysmal Noc. Dyspnea, Edema, Lt Headedness, Other Objective-Cardiology Exam Last Set of Vital Signs Vital Signs 07/22/22 07/23/22 07/23/22 16:34 04:00 07:00 Temp 36.6 Pulse 59 B/P (MAP) 122/77 (92) O2 Delivery Nasal Cannula O2 Flow Rate 3.00 I&O Intake and Output 07/23/22 00:00 Intake Total 980 ml Output Total 1650 ml Balance -670 ml Intake Oral 980 ml Output Urine Total 1650 ml # Voids 6 # Bowel Movements 1 Daily Weight Change No General: Alert, Oriented X3, Cooperative HEENT: Atraumatic, PERRLA Neck: Supple, No JVD, No Thyromegaly Lungs: Clear to Auscultation, Normal Air Movement Heart: Normal S1, Normal S2, No Murmurs, Other (Atrial fibrillation) Abdomen: Normal Bowel Sounds, Soft, No Tenderness, No Hepatosplenomegaly, No Masses Extremities: No Clubbing, No Cyanosis, No Edema, Normal Pulses, No Tenderness/Swelling Skin: No Rashes, No Breakdown, No Significant Lesion Neuro: Normal Gait, Normal Speech, Strength at 5/5 X4 Ext, Normal Tone, Sensation Intact Psych/Mental Status: Mental Status NL, Mood NL Results Lab Laboratory Tests 07/22/22 08:44 07/23/22 05:01 A/P-Cardiology Admission Diagnosis Atrial fibrillation Hypertension Hyperlipidemia COPD Assessment/Plan Paroxysmal atrial fibrillation, Had atrial fibrillation after having COVID-19 infection in February 2020 at [facility]. Maintained on diltiazem and Xarelto. Tolerating medication well. EKG was done during the visit today showing rate controlled afib. Patient reports he has had more afib recently. Unable to tolerate Amiodarone d/t severe COPD, Patient was concerned about using Multaq especially with his history of hepatitis. Currently is becoming persistent/permanent atrial fibrillation, patient is tolerating it well. We discussed continuing with rate control instead of rhythm control and he is maintained on oral anticoagulation. We discussed the possibility of A-fib ablation. Was referred to Dr. Agrawal and started on Flecainide. Patient d/c'd Flecainide d/t dizziness and near syncope. Day #2 on Tikosyn, we will continue loading Planning for cardioversion in the morning History of congestive heart failure, workup for the last 5 years showed normal LV function. His heart failure has resolved. Continue to monitor Echocardiogram done in May 2022 showing mild to moderately increased left ventricle, trivial AR, PA 20-25mmHg. Stress test done June 2022 showing baseline atrial fibrillation with frequent PVCs noted. Patient tolerated Lexiscan well. Fixed defect involving the inferior wall and apex, no significant ischemia was noted. Normal left ventricular size, ejection fraction 62%, atrial fibrillation will affect the gated images. SSS 12, SDS 0, TID 0.96 Status post DVT and PE occurred in February 2020 at [facility] after having COVID-19 infection, maintained on Xarelto History of pulmonary hypertension, 2D Echo done May 2022 showing PA 20-25mmHg. COPD, severe emphysema, maintained on oxygen, CT scan was done in April 2020 reported as severe emphysema with mild atelectasis. Followed and managed by primary care physician History of chest pain, nonspecific etiology, normal cardiac catheterization 2007. Currently asymptomatic, planning to evaluate stress test Hypertension, good control on current medication. Continue to monitor Hyperlipidemia, has been maintained on rosuvastatin 5 mg daily Lipid profile done on December 18, 2021 with total cholesterol 123, HDL 35, triglyceride 95, LDL 69. Continue to monitor Nonobstructive carotid artery stenosis per carotid duplex done June 2021. Hypothyroidism, followed and managed by primary care physician. History of hepatitis C. History of depression. GABBY HENAO MD July 23, 2022 08:01
[2022-07-23] MEDS ORDERED: KCL 20 MEQ TAB (K-DUR) PO ONE (08:15)
[2022-07-23] MEDS: OMEGA 3 (FISH OIL) 1000 MG CAP PO SCH ×3 (08:39→18:02)
[2022-07-23] MEDS: LORATADINE (CLARITIN) 10 MG TAB PO SCH (08:39)
[2022-07-23] MEDS: DOCUSATE SODIUM 100 MG (COLACE) CAP PO SCH ×2 (08:39→20:30)
[2022-07-23] MEDS: lisINopril 20 MG (PRINIVIL) TABLET PO SCH (08:40)
[2022-07-23] MEDS: DOFETILIDE 500 MCG PO SCH ×2 (08:48→19:59)
[2022-07-23] MEDS: QUETIAPINE 50 MG PO SCH ×2 (08:49→20:30)
[2022-07-23] MEDS: SENNOSIDES 8.6 MG (SENOKOT) TAB PO SCH ×2 (08:50→20:30)
[2022-07-23 09:00] LABS: POTASSIUM 3.8 MMOL/L (3.6-5.0)
[2022-07-23] MEDS ORDERED: LEVOTHYROXINE 100 MCG (LEVOTHROID) TAB PO SCH (09:00)
[2022-07-23] MEDS ORDERED: NON-FORMULARY MEDICATION 1 EA EA (Fluticasone/Umeclidin/Vilanter (Trelegy Ellipta 100-62.5 INH SCH (09:00)
[2022-07-23] MEDS ORDERED: NON-FORMULARY MEDICATION 1 EA EA (Cetirizine HCl 10 MG) PO SCH (09:00)
[2022-07-23 09:02] LABS: CALCIUM 8.7 MG/DL (8.5-10.1)
[2022-07-23 09:06] LABS: CREATININE SERUM 0.92 MG/DL (0.60-1.30)
[2022-07-23] MEDS: RT-ALBUTEROL SULF 2.5 MG/3 ML PRE-MIX VIAL INH SCH (09:20)
[2022-07-23 12:00] VITALS: BP 129/88
[2022-07-23 15:50] VITALS: BP 150/99
[2022-07-23 18:00] VITALS: BP 152/91
[2022-07-23] MEDS: RIVAROXABAN 20 MG TABLET (XARELTO) PO SCH (18:02)
[2022-07-23 19:25] VITALS: BP 149/105
[2022-07-23] MEDS: MELATONIN 10 MG TABLET PO SCH (20:29)
[2022-07-23] MEDS: MONTELUKAST 10 MG (SINGULAIR) TAB PO SCH (20:29)
[2022-07-23] MEDS: VITAMIN D3 25 MCG (1,000 UNITS) TABLET PO SCH (20:29)
[2022-07-23] MEDS: MIRTAZAPINE 15 MG (REMERON) TAB PO SCH (20:29)
[2022-07-23] MEDS: ROSUVASTATIN 5 MG (CRESTOR) TABLET PO SCH (20:29)
[2022-07-24] VITALS (8 sets, daily range): BP systolic 125–162; BP diastolic 97–112
[2022-07-24 05:47] LABS: BASOPHILS # (AUTO) 0.1 10^3/uL (0.0-0.1); BASOPHILS % (AUTO) 1 % (0-10); EOSINOPHILS # (AUTO) 0.2 10^3/uL (0.0-0.3); EOSINOPHILS % (AUTO) 2 % (0-10); HEMATOCRIT 41 % (40-54); HEMOGLOBIN 14.3 g/dL (13.3-17.7); LYMPHOCYTES # (AUTO) 1.1 10^3/uL (1.0-4.0); LYMPHOCYTES % (AUTO) 17 % (12-44); MEAN CORPUSCULAR HEMOGLOBIN 32 pg (25-34); MEAN CORPUSCULAR HGB CONC 35 g/dL (32-36); MEAN CORPUSCULAR VOLUME 89 fL (80-99); MEAN PLATELET VOLUME 9.3 fL (9.0-12.2); MONOCYTES # (AUTO) 0.9 10^3/uL (0.0-1.0); MONOCYTES % (AUTO) 15 % (0-12); NEUTROPHILS # (AUTO) 4.2 10^3/uL (1.8-7.8); NEUTROPHILS % (AUTO) 65 % (42-75); PLATELET COUNT 253 10^3/uL (130-400); WHITE BLOOD COUNT 6.4 10^3/uL (4.3-11.0)
[2022-07-24 06:35] LABS: ALBUMIN 3.5 GM/DL (3.2-4.5)
[2022-07-24 06:36] LABS: POTASSIUM 3.9 MMOL/L (3.6-5.0)
[2022-07-24 06:37] LABS: CALCIUM 8.6 MG/DL (8.5-10.1)
[2022-07-24 06:38] LABS: TOTAL PROTEIN 6.8 GM/DL (6.4-8.2)
[2022-07-24 06:40] LABS: BILIRUBIN,TOTAL 0.4 MG/DL (0.1-1.0)
[2022-07-24 06:41] LABS: CREATININE SERUM 0.8 MG/DL (0.60-1.30)
[2022-07-24] MEDS: LEVOTHYROXINE 100 MCG (LEVOTHROID) TAB PO SCH (06:45)
[2022-07-24] MEDS: VENlafaxine XR 75 MG (EFFEXOR XR) CAP PO SCH (06:45)
[2022-07-24] MEDS ORDERED: NS IV 1000 ML 1,000 ML ONE (08:16)
[2022-07-24] MEDS ORDERED: MIDAZOLAM 2 MG/2 ML (VERSED) VIAL ONE (08:32)
[2022-07-24] MEDS ORDERED: PROPOFOL INJECTION 50 ML IV ONE (08:32)
[2022-07-24 08:53] LABS: POTASSIUM 4.1 MMOL/L (3.6-5.0)
[2022-07-24 08:54] LABS: CALCIUM 8.9 MG/DL (8.5-10.1)
[2022-07-24 08:59] LABS: CREATININE SERUM 0.81 MG/DL (0.60-1.30)
--- NOTE | 2022-07-24 09:00 | Cardiac Procedure Note-CS/ASA ---
Pre-Procedure Note Pre-Op Procedure Note Date of Available H&P: July 24, 2022 Date H&P Reviewed: July 24, 2022 Time H&P Reviewed: 08:30 History & Physical: H&P Reviewed, Patient Examed, No changes noted Pre-Operative Diagnosis: a fib Moderate Sedation PreProcedure Time 08:30 ASA Score 3 Airway Lungs Heart ASA score ASA 1: a normal healthy patient ASA 2: a patient with a mild systemic disease (mid diabetes, controlled hypertension, obesity ASA 3: a patient with a severe systemic disease that limits activity (angina, COPD, prior Myocardial infarction) ASA 4: a patient with an incapacitating disease that is a constant threat to life (CHF, renal failure) ASA 5: a moribund patient not expected to survive 24 hrs. (ruptured aneurysm) ASA 6: a declared brain- patient whose organs are being harvested. For emergent operations, add the letter E after the classification Mallampati Classification Grade 3 Sedation Plan Analgesia, Amnesia, Plan communicated to team members, Discussed options with patient/fam, Discussed risks with patient/fam The patient is an appropriate candidate to undergo the planned procedure, sedation, and anesthesia. The patient immediately re-assessed prior to indication. GABBY HENAO MD July 24, 2022 09:00
--- NOTE | 2022-07-24 09:01 | Cardiology Progress Note ---
Subjective Date Seen by Provider: July 24, 2022 Time Seen by Provider: 09:00 Subjective/Events-last exam Patient was seen at bedside laying down comfortably. No new complaint Objective-Cardiology Exam Last Set of Vital Signs Vital Signs 07/24/22 08:00 Temp 36.2 Pulse 71 Resp 16 B/P (MAP) 139/99 (112) Pulse Ox 96 O2 Delivery Nasal Cannula O2 Flow Rate 3.00 I&O Intake and Output 07/24/22 00:00 Intake Total 1810 ml Balance 1810 ml Intake Oral 1810 ml # Voids 6 # Bowel Movements 1 General: Alert, Oriented X3, Cooperative, No Acute Distress HEENT: Atraumatic, PERRLA Neck: Supple, No JVD, No Thyromegaly Lungs: Clear to Auscultation, Normal Air Movement Heart: Regular Rate, Normal S1, Normal S2, No Murmurs Abdomen: Normal Bowel Sounds, Soft, No Tenderness, No Hepatosplenomegaly, No Masses Extremities: No Clubbing, No Cyanosis, No Edema, Normal Pulses, No Tenderness/Swelling Skin: No Rashes, No Breakdown, No Significant Lesion Neuro: Normal Gait, Normal Speech, Strength at 5/5 X4 Ext, Normal Tone, Sensation Intact Psych/Mental Status: Mental Status NL, Mood NL Results Lab Laboratory Tests 07/24/22 05:15 07/24/22 08:36 A/P-Cardiology Admission Diagnosis Atrial fibrillation Hypertension Hyperlipidemia COPD Assessment/Plan Paroxysmal atrial fibrillation, Had atrial fibrillation after having COVID-19 infection in February 2020 at [facility]. Maintained on diltiazem and Xarelto. Tolerating medication well. EKG was done during the visit today showing rate controlled afib. Patient reports he has had more afib recently. Unable to tolerate Amiodarone d/t severe COPD, Patient was concerned about using Multaq especially with his history of hepatitis. Currently is becoming persistent/permanent atrial fibrillation, patient is tolerating it well. We discussed continuing with rate control instead of rhythm control and he is maintained on oral anticoagulation. We discussed the possibility of A-fib ablation. Was referred to Dr. Agrawal and started on Flecainide. Patient d/c'd Flecainide d/t dizziness and near syncope. Day #3 on Tikosyn, we will continue loading Underwent electrical cardioversion, continue to monitor QTc History of congestive heart failure, workup for the last 5 years showed normal LV function. His heart failure has resolved. Continue to monitor Echocardiogram done in May 2022 showing mild to moderately increased left ventricle, trivial AR, PA 20-25mmHg. Stress test done June 2022 showing baseline atrial fibrillation with frequent PVCs noted. Patient tolerated Lexiscan well. Fixed defect involving the inferior wall and apex, no significant ischemia was noted. Normal left ventricular size, ejection fraction 62%, atrial fibrillation will affect the gated images. SSS 12, SDS 0, TID 0.96 Status post DVT and PE occurred in February 2020 at [facility] after having COVID-19 infection, maintained on Xarelto History of pulmonary hypertension, 2D Echo done May 2022 showing PA 20-25mmHg. COPD, severe emphysema, maintained on oxygen, CT scan was done in April 2020 reported as severe emphysema with mild atelectasis. Followed and managed by primary care physician History of chest pain, nonspecific etiology, normal cardiac catheterization 2007. Currently asymptomatic, planning to evaluate stress test Hypertension, good control on current medication. Continue to monitor Hyperlipidemia, has been maintained on rosuvastatin 5 mg daily Lipid profile done on December 18, 2021 with total cholesterol 123, HDL 35, triglyceride 95, LDL 69. Continue to monitor Nonobstructive carotid artery stenosis per carotid duplex done June 2021. Hypothyroidism, followed and managed by primary care physician. History of hepatitis C. History of depression. GABBY HENAO MD July 24, 2022 09:01
--- NOTE | 2022-07-24 09:02 | Cardioversion ---
Cardioversion PROCEDURE PHYSICIAN: Gabby Palma DATE OF PROCEDURE: 07/24/22 DIRECT EXTERNAL ELECTRICAL CARDIOVERSION: Indications: Atrial Fibrillation Preoperative diagnoses: Atrial Fibrillation Postoperative diagnosis: Sinus rhythm, Successful Electrical Cardioversion History: 67-year-old gentleman with paroxysmal atrial fibrillation, failed multiple treatment options. Admitted for loading with Tikosyn, scheduled for electrical cardioversion. Anesthesia: By Anesthesia services Complications: None Specimen: None Contrast: 0 Flouroscopy: none Procedure Details: The patient was brought the veterinary laboratory technician after informed consent was taken, all the risks and complications were explained including the risk of stroke. Electrical cardioversion was carried out with anesthesia support with propofol. 200 joules of synchronized shock was delivered through external patches which promptly restored sinus rhythm. The patient tolerated the procedure well. Conclusions: Successful electrical cardioversion terminating atrial fibrillation GABBY PALMA MD July 24, 2022 09:02
--- NOTE | 2022-07-24 10:25 | Anesthesia-General Post-Op ---
MAC Patient Condition Mental Status/LOC: Same as Preop Cardiovascular: Satisfactory Nausea/Vomiting: Absent Respiratory: Satisfactory Pain: Controlled Complications: Absent Post Op Complications Complications None Follow Up Care/Instructions Patient Instructions None needed. Anesthesiology Discharge Order Discharge Order Patient is doing well, no complaints, stable vital signs, no apparent adverse anesthesia problems. No complications reported per nursing. GABRIELLE LOJA CRNA July 24, 2022 10:25
[2022-07-24] MEDS: DOFETILIDE 500 MCG PO SCH (10:45)
[2022-07-24] MEDS: lisINopril 20 MG (PRINIVIL) TABLET PO SCH (10:46)
[2022-07-24] MEDS: LORATADINE (CLARITIN) 10 MG TAB PO SCH (10:46)
[2022-07-24] MEDS: OMEGA 3 (FISH OIL) 1000 MG CAP PO SCH ×3 (10:46→17:15)
[2022-07-24] MEDS: QUETIAPINE 50 MG PO SCH ×2 (10:47→20:30)
[2022-07-24] MEDS: SENNOSIDES 8.6 MG (SENOKOT) TAB PO SCH ×2 (10:50→20:30)
[2022-07-24] MEDS: DOCUSATE SODIUM 100 MG (COLACE) CAP PO SCH ×2 (10:50→20:30)
[2022-07-24] MEDS: RT-ALBUTEROL SULF 2.5 MG/3 ML PRE-MIX VIAL INH SCH (10:51)
[2022-07-24] MEDS: RIVAROXABAN 20 MG TABLET (XARELTO) PO SCH (17:15)
[2022-07-24] MEDS: MELATONIN 10 MG TABLET PO SCH (20:28)
[2022-07-24] MEDS: ROSUVASTATIN 5 MG (CRESTOR) TABLET PO SCH (20:29)
[2022-07-24] MEDS: MONTELUKAST 10 MG (SINGULAIR) TAB PO SCH (20:29)
[2022-07-24] MEDS: MIRTAZAPINE 15 MG (REMERON) TAB PO SCH (20:29)
[2022-07-24] MEDS: VITAMIN D3 25 MCG (1,000 UNITS) TABLET PO SCH (20:30)
[2022-07-25 04:00] VITALS: BP 121/73
[2022-07-25 05:07] LABS: BASOPHILS # (AUTO) 0.1 10^3/uL (0.0-0.1); BASOPHILS % (AUTO) 1 % (0-10); EOSINOPHILS # (AUTO) 0.2 10^3/uL (0.0-0.3); EOSINOPHILS % (AUTO) 3 % (0-10); HEMATOCRIT 41 % (40-54); HEMOGLOBIN 14.4 g/dL (13.3-17.7); LYMPHOCYTES # (AUTO) 0.9 10^3/uL (1.0-4.0); LYMPHOCYTES % (AUTO) 16 % (12-44); MEAN CORPUSCULAR HEMOGLOBIN 31 pg (25-34); MEAN CORPUSCULAR HGB CONC 35 g/dL (32-36); MEAN CORPUSCULAR VOLUME 89 fL (80-99); MEAN PLATELET VOLUME 9.2 fL (9.0-12.2); MONOCYTES # (AUTO) 0.8 10^3/uL (0.0-1.0); MONOCYTES % (AUTO) 14 % (0-12); NEUTROPHILS # (AUTO) 3.7 10^3/uL (1.8-7.8); NEUTROPHILS % (AUTO) 66 % (42-75); PLATELET COUNT 245 10^3/uL (130-400); WHITE BLOOD COUNT 5.6 10^3/uL (4.3-11.0)
[2022-07-25 05:19] LABS: ALBUMIN 3.5 GM/DL (3.2-4.5)
[2022-07-25 05:20] LABS: POTASSIUM 4.2 MMOL/L (3.6-5.0)
[2022-07-25 05:21] LABS: CALCIUM 8.8 MG/DL (8.5-10.1)
[2022-07-25 05:22] LABS: TOTAL PROTEIN 6.9 GM/DL (6.4-8.2)
[2022-07-25 05:24] LABS: BILIRUBIN,TOTAL 0.4 MG/DL (0.1-1.0)
[2022-07-25 05:26] LABS: CREATININE SERUM 0.82 MG/DL (0.60-1.30)
[2022-07-25] MEDS: VENlafaxine XR 75 MG (EFFEXOR XR) CAP PO SCH (06:26)
[2022-07-25] MEDS: LEVOTHYROXINE 100 MCG (LEVOTHROID) TAB PO SCH (06:26)
[2022-07-25] MEDS: LORATADINE (CLARITIN) 10 MG TAB PO SCH (07:55)
[2022-07-25] MEDS: OMEGA 3 (FISH OIL) 1000 MG CAP PO SCH ×2 (07:55→12:53)
[2022-07-25] MEDS: DOCUSATE SODIUM 100 MG (COLACE) CAP PO SCH (07:55)
[2022-07-25] MEDS: QUETIAPINE 50 MG PO SCH (07:56)
[2022-07-25] MEDS: lisINopril 20 MG (PRINIVIL) TABLET PO SCH (07:56)
[2022-07-25] MEDS: SENNOSIDES 8.6 MG (SENOKOT) TAB PO SCH (07:56)
[2022-07-25 08:00] VITALS: BP 144/99
[2022-07-25] MEDS ORDERED: UMECLIDINIUM BROMIDE (INCRUSE ELLIPTA) 7'S IH SCH (08:00)
[2022-07-25] MEDS ORDERED: RT--FLUTICASONE/SALMETEROL 232-14 (AIRDUO RespiCLICK) IH SCH (08:00)
[2022-07-25] MEDS: RT-ALBUTEROL SULF 2.5 MG/3 ML PRE-MIX VIAL INH SCH (08:58)
[2022-07-25 09:37] LABS: CALCIUM 8.8 MG/DL (8.5-10.1); CREATININE SERUM 0.88 MG/DL (0.60-1.30); POTASSIUM 4.4 MMOL/L (3.6-5.0)
[2022-07-25 12:00] VITALS: BP 141/99
[2022-07-25] MEDS ORDERED: CARV3.12 PO (15:06)
--- NOTE | 2022-07-25 15:07 | Discharge Inst-Post CATH ---
Discharge Inst-CATH/EP Problems Reviewed?: Yes Post Cardiac Cath/EP D/C Inst Follow Up/Plan Appointment with Dr. Palma's office next week <b>CARDIAC CATH/EP PROCEDURE DISCHARGE INSTRUCTIONS</b> ACTIVITY * Go Home directly and rest. * Limit activity of the leg (or wrist if it was used) for 7 days including aerobics, swimming, jogging, bicycling, etc. * Restrict stair-climbing for 7 days if possible, if not, climb up with your non-cath leg, then bring together on the same step. * Avoid lifting, pushing, pulling or excessive movement of the affected extremity for 7 days. * Customary sexual activity may be resumed after 2 days-use caution not to use a position that strains or causes pain to the affected extremity. * No driving for 24 hours. * NO SMOKING. * Avoid straining for bowel movements for 7 days. * Gentle walking on level ground is allowed. * Returning to work will depend on the type of procedure and the results. Your doctor will discuss this with you. CALL YOUR DOCTOR FOR ANY OF THE FOLLOWING: *If bleeding from the puncture site occurs- Apply gentle pressure to site with clean cloth and call your doctor or EMS. * If a knot or lump forms under the skin, increases in size, or causes pain. * If bruising appears to be worsening or moving further down your leg instead of disappearing. * Temperature above 101 F. CARE OF YOUR GROIN INCISION; * Bruising or purple discoloration of the skin near the puncture site is common. * You may shower only, no bathtub bathing for 5 days. Be careful to avoid slipping as your leg may feel stiff. * If a closure device was used on your femoral artery, please see the attached guide regarding care of the device and your leg. * Leave dressing on FOR 24 hours. CARE OF YOUR WRIST INCISION; * Bruising or purple discoloration of the skin near the puncture site is common. * You may shower. * DO NOT submerge wrist. * Leave dressing on FOR 24 hours. GABBY PALMA MD July 25, 2022 15:06
--- NOTE | 2022-07-25 15:11 | Cardiology Discharge Summary ---
Discharge Summary Hospital Course Problems Reviewed?: Yes Hospital Course Date of Admission: July 22, 2022 at 07:55 Admission Diagnosis : Family Physician/Provider: Beryl Shi MD Date of Discharge: 07/25/22 Discharge Diagnosis: [Paroxysmal atrial fibrillation Bradycardia Congestive heart failure, chronic compensated left ventricular diastolic dysfunction Hypertension] Hospital Course: [ Paroxysmal atrial fibrillation, [place] [facility] [place] diltiazem and Xarelto. Unable to tolerate Amiodarone d/t severe COPD, Patient was concerned about using Multaq especially with his history of hepatitis. Currently is becoming persistent/permanent atrial fibrillation We discussed the possibility of A-fib ablation. Was referred to Dr. Agrawal and started on Flecainide. Patient d/c'd Flecainide d/t dizziness and near syncope. Could not tolerate Tikosyn due to QTc prolongation Underwent electrical cardioversion on July 24, 2022 Maintaining sinus rhythm This afternoon QTc return to baseline I will discharge home We will consider using propafenone as an outpatient Severe bradycardia, probably combination of atrial fibrillation and Cardizem and Coreg I held Coreg during the hospital visit I will restart at 3.125 twice daily History of congestive heart failure, workup for the last 5 years showed normal LV function. His heart failure has resolved. Continue to monitor Echocardiogram done in May 2022 showing mild to moderately increased left ventricle, trivial AR, PA 20-25mmHg. Stress test done June 2022 showing baseline atrial fibrillation with frequent PVCs noted. Patient tolerated Lexiscan well. Fixed defect involving the inferior wall and apex, no significant ischemia was noted. Normal left ventricular size, ejection fraction 62%, atrial fibrillation will affect the gated images. SSS 12, SDS 0, TID 0.96 Status post [place] and PE [place] [facility] [place], maintained on Xarelto History of pulmonary hypertension, 2D Echo done May 2022 showing PA 20-25mmHg. COPD, severe emphysema, maintained on oxygen, CT scan was done in April 2020 reported as severe emphysema with mild atelectasis. Followed and managed by primary care physician History of chest pain, nonspecific etiology, normal cardiac catheterization 2007. Currently asymptomatic, planning to evaluate stress test Hypertension, good control on current medication. Continue to monitor Hyperlipidemia, has been maintained on rosuvastatin 5 mg daily Lipid profile done on December 18, 2021 with total cholesterol 123, HDL 35, triglyceride 95, LDL 69. Continue to monitor Nonobstructive carotid artery stenosis per carotid duplex done June 2021. Hypothyroidism, followed and managed by primary care physician. History of hepatitis C. History of depression.] Labs and Pending Lab Test: Laboratory Tests 07/25/22 05:00: White Blood Count 5.6, Red Blood Count 4.59, Hemoglobin 14.4, Hematocrit 41, Mean Corpuscular Volume 89, Mean Corpuscular Hemoglobin 31, Mean Corpuscular Hemoglobin Concent 35, Red Cell Distribution Width 12.4, Platelet Count 245, Mean Platelet Volume 9.2, Immature Granulocyte % (Auto) 0, Neutrophils (%) (Auto) 66, Lymphocytes (%) (Auto) 16, Monocytes (%) (Auto) 14H, Eosinophils (%) (Auto) 3, Basophils (%) (Auto) 1, Neutrophils # (Auto) 3.7, Lymphocytes # (Auto) 0.9L, Monocytes # (Auto) 0.8, Eosinophils # (Auto) 0.2, Basophils # (Auto) 0.1, Immature Granulocyte # (Auto) 0.0, Sodium Level 139, Potassium Level 4.2, Chloride Level 104, Carbon Dioxide Level 26, Anion Gap 9, Blood Urea Nitrogen 13, Creatinine 0.82, Estimat Glomerular Filtration Rate 95, BUN/Creatinine Ratio 16, Glucose Level 101, Calcium Level 8.8, Corrected Calcium 9.2, Total Bilirubin 0.4, Aspartate Amino Transf (AST/SGOT) 13, Alanine Aminotransferase (ALT/SGPT) 9, Alkaline Phosphatase 90, Total Protein 6.9, Albumin 3.5 07/25/22 08:53: Sodium Level 137, Potassium Level 4.4, Chloride Level 101, Carbon Dioxide Level 27, Anion Gap 9, Blood Urea Nitrogen 12, Creatinine 0.88, Estimat Glomerular Filtration Rate 93, BUN/Creatinine Ratio 14, Glucose Level 128H, Calcium Level 8.8 Home Meds Active Coreg (Carvedilol) 3.125 Mg Tablet 3.125 Mg PO BID Reported Ventolin Hfa (Albuterol Sulfate) 90 Mcg Hfa.aer.ad 2 Puff INH DAILY USES BEFORE TRELEGY Ibuprofen 200 Mg Tablet 400 Mg PO Q8H PRN Fish Oil Conc 1,000 mg Softgel (Stites-3 Fatty Acids/Fish Oil) 300 Mg-1,000 Mg Capsule 1 Each PO TIDWM Vitamin D3 (Cholecalciferol (Vitamin D3)) 25 Mcg (1000 Unit) Tablet 25 Mcg PO 1999 Cetirizine HCl 10 Mg Tablet 10 Mg PO DAILY Melatonin 5 Mg/15 Ml Liquid 5 Mg PO 1999 Xarelto (Rivaroxaban) 20 Mg Tablet 20 Mg PO 1999 Quetiapine Fumarate 50 Mg Tablet 50 Mg PO BID Rosuvastatin Calcium 5 Mg Tablet 5 Mg PO 1999 Mirtazapine 15 Mg Tablet 15 Mg PO 1999 Venlafaxine HCl ER (Venlafaxine HCl) 75 Mg Cap.er.24h 75 Mg PO DAILY Montelukast Sodium 10 Mg Tablet 10 Mg PO 1999 Carvedilol 25 Mg Tablet 25 Mg PO BID Diltiazem 24Hr ER (Diltiazem HCl) 240 Mg Cap.er.24h 240 Mg PO 1999 Levothyroxine Sodium 100 Mcg Tablet 100 Mcg PO DAILY Lisinopril 20 Mg Tablet 20 Mg PO 1999 Ventolin Hfa (Albuterol Sulfate) 90 Mcg Hfa.aer.ad 2 Puff INH Q4H PRN Trelegy Ellipta 100-62.5-25 (Fluticasone/Umeclidin/Vilanter) 100-62.5 Blst.w.dev 1 Puff INH DAILY Assessment/Pt DC Instructions Atrial fibrillation Hypertension Palpitation Bradycardia Hyperlipidemia Discharge Physical Examination Allergies: Coded Allergies: ramipril (Verified Allergy, Unknown, DRY COUGH, 07/22/22) General Appearance: No Apparent Distress, WD/WN HEENT: PERRL/EOMI, TMs Normal, Normal ENT Inspection, Pharynx Normal Respiratory: Chest Non Tender, Lungs Clear, Normal Breath Sounds, No Accessory Muscle Use, No Respiratory Distress Cardiovascular: Regular Rate, Rhythm, No Edema, No Gallop, No JVD, No Murmur, Normal Peripheral Pulses Gastrointestinal: Normal Bowel Sounds, No Organomegaly, No Pulsatile Mass, Non Tender, Soft Extremity: Normal Capillary Refill, Normal Inspection, Normal Range of Motion, Non Tender, No Calf Tenderness Skin: Normal Color, Warm/Dry Neurologic/Psychiatric: Alert Clinical Quality Measures Admission Status Admission Status: Inpatient Order (span 2 midnights) Reason for Inpatient Admission: Atrial fibrillation, loading with Tikosyn AMI/AHF: Ejection Fraction: Normal LVSF GABBY HENAO MD July 25, 2022 15:11
== END 2022-07-25 16:20 | disposition home or self-care (01) | DRG 309 ==
LOC: CSD 07:55
PROVIDERS: ADMIT Internal Medicine Cardiovascular Disease; ATTEND Internal Medicine Cardiovascular Disease
PROC: 5A2204Z Restoration of Cardiac Rhythm, Single (ICD-10-PCS; principal; 2022-07-24)
DX: I48.0 Paroxysmal atrial fibrillation (principal); I50.32 Chronic diastolic (congestive) heart failure; I48.21 Permanent atrial fibrillation; I49.3 Ventricular premature depolarization; J43.9 Emphysema, unspecified; I27.20 Pulmonary hypertension, unspecified; I11.0 Hypertensive heart disease with heart failure; R00.1 Bradycardia, unspecified; E78.5 Hyperlipidemia, unspecified; E03.9 Hypothyroidism, unspecified; E66.9 Obesity, unspecified; Z79.01 Long term (current) use of anticoagulants; Z68.31 Body mass index [BMI] 31.0-31.9, adult; Z99.81 Dependence on supplemental oxygen; Z86.16 Personal history of COVID-19; Z86.718 Personal history of other venous thrombosis and embolism; Z86.711 Personal history of pulmonary embolism; Z79.899 Other long term (current) drug therapy; T46.1X5A Adverse effect of calcium-channel blockers, initial encounter; T44.7X5A Adverse effect of beta-adrenoreceptor antagonists, initial encounter
CPT/HCPCS: 36415; 80048; 80053; 85025; 85027; 93005; 94640

== ENCOUNTER → 2022-08-18 | Day surgery (SDC) | payer MEDICARE ==
[~2022-08-18] VITALS: Ht 182.9 cm; Wt 108.0 kg
[2022-08-18] VITALS (8 sets, daily range): BP systolic 123–159; BP diastolic 84–122
[~2022-08-18] MED LIST changes: +ALBU18HF2 INH; +CARV25TA PO; +CARV3.12 PO; +CARV3.122 PO; +CETI10TA17 PO; +CHOL10004 PO; +DILT240C91 PO; +DRON400T6 PO; +FLUT1BLS3 INH; +FOLI0.8T4 PO; +IBUP-2473 PO; +LEVO100T7 PO; +LISI20TA26 PO; +MELA5LIQ2 PO; +MIDAZOLAM 2 MG/2 ML (VERSED) VIAL ONE; +MIRT-68 PO; +MONT-40 PO; +NS IV 1000 ML 1,000 ML IV SCH; +NS IV 1000 ML 1,000 ML ONE; +OMEG1CAP16 PO; +QUET50TA23 PO; -REGADENOSON 0.4 MG/5 ML SYR (LEXISCAN) IV ONE; +RIVA20TA PO; +ROSU5TAB13 PO; +VENL75CA93 PO; +proPOfol 200 MG/20 ML (DIPRIVAN) VIAL IV ONE
--- NOTE | 2022-08-18 08:37 | Cardiac Procedure Note-CS/ASA ---
Pre-Procedure Note Pre-Op Procedure Note Date of Available H&P: Aug 17, 2022 Date H&P Reviewed: Aug 18, 2022 Time H&P Reviewed: 08:36 History & Physical: H&P Reviewed, Patient Examed, No changes noted Pre-Operative Diagnosis: a fib Moderate Sedation PreProcedure Time 08:36 ASA Score 3 Airway Lungs Heart ASA score ASA 1: a normal healthy patient ASA 2: a patient with a mild systemic disease (mid diabetes, controlled hypertension, obesity ASA 3: a patient with a severe systemic disease that limits activity (angina, COPD, prior Myocardial infarction) ASA 4: a patient with an incapacitating disease that is a constant threat to life (CHF, renal failure) ASA 5: a moribund patient not expected to survive 24 hrs. (ruptured aneurysm) ASA 6: a declared brain- patient whose organs are being harvested. For emergent operations, add the letter E after the classification Mallampati Classification Grade 3 Sedation Plan Analgesia, Amnesia, Plan communicated to team members, Discussed options with patient/fam, Discussed risks with patient/fam The patient is an appropriate candidate to undergo the planned procedure, sedation, and anesthesia. The patient immediately re-assessed prior to indication. GABBY HENAO MD Aug 18, 2022 08:37
--- NOTE | 2022-08-18 08:51 | Discharge Inst-Post CATH ---
Discharge Inst-CATH/EP Problems Reviewed?: Yes Post Cardiac Cath/EP D/C Inst Follow Up/Plan Appointment with Dr. Palma's office in 2 to 4 weeks <b>CARDIAC CATH/EP PROCEDURE DISCHARGE INSTRUCTIONS</b> ACTIVITY * Go Home directly and rest. * Limit activity of the leg (or wrist if it was used) for 7 days including aer obics, swimming, jogging, bicycling, etc. * Restrict stair-climbing for 7 days if possible, if not, climb up with your non-cath leg, then bring together on the same step. * Avoid lifting, pushing, pulling or excessive movement of the affected extremi ty for 7 days. * Customary sexual activity may be resumed after 2 days-use caution not to use a position that strains or causes pain to the affected extremity. * No driving for 24 hours. * NO SMOKING. * Avoid straining for bowel movements for 7 days. * Gentle walking on level ground is allowed. * Returning to work will depend on the type of procedure and the results. Your doctor will discuss this with you. CALL YOUR DOCTOR FOR ANY OF THE FOLLOWING: *If bleeding from the puncture site occurs- Apply gentle pressure to site with clean cloth and call your doctor or EMS. * If a knot or lump forms under the skin, increases in size, or causes pain. * If bruising appears to be worsening or moving further down your leg instead of disappearing. * Temperature above 101 F. CARE OF YOUR GROIN INCISION; * Bruising or purple discoloration of the skin near the puncture site is common. * You may shower only, no bathtub bathing for 5 days. Be careful to avoid slipping as your leg may feel stiff. * If a closure device was used on your femoral artery, please see the attached guide regarding care of the device and your leg. * Leave dressing on FOR 24 hours. CARE OF YOUR WRIST INCISION; * Bruising or purple discoloration of the skin near the puncture site is common. * You may shower. * DO NOT submerge wrist. * Leave dressing on FOR 24 hours. GABBY PALMA MD Aug 18, 2022 08:51
--- NOTE | 2022-08-18 08:53 | Cardioversion ---
Cardioversion PROCEDURE PHYSICIAN: Gabby Palma DATE OF PROCEDURE: 08/18/22 DIRECT EXTERNAL ELECTRICAL CARDIOVERSION: Indications: Atrial Fibrillation Preoperative diagnoses: Atrial Fibrillation Postoperative diagnosis: Sinus rhythm, Successful Electrical Cardioversion History: 67-year-old gentleman with history of paroxysmal atrial fibrillation, failed multiple cardioversion, has been loaded on Multaq. Will having shortness of breath when he is in atrial fibrillation has scheduled him for another cardioversion. Anesthesia: By Anesthesia services Complications: None Specimen: None Contrast: 0 Flouroscopy: none Procedure Details: The patient was brought the drop crew laborer after informed consent was taken, all the risks and complications were explained including the risk of stroke. Electrical cardioversion was carried out with anesthesia support with propofol. 200 joules of synchronized shock was delivered through external patches which promptly restored sinus rhythm. The patient tolerated the procedure well. Conclusions: Successful electrical cardioversion terminating atrial fibrillation Final Diagnosis: Paroxysmal atrial fibrillation Palpitation Shortness of breath Hypertension GABBY PALMA MD Aug 18, 2022 08:53
--- NOTE | 2022-08-19 07:11 | Anesthesia-General Post-Op ---
MAC Patient Condition Mental Status/LOC: Same as Preop Cardiovascular: Satisfactory Nausea/Vomiting: Absent Respiratory: Satisfactory Pain: Controlled Complications: Absent Post Op Complications Complications None Follow Up Care/Instructions Patient Instructions None needed. Anesthesiology Discharge Order Discharge Order Patient is doing well, no complaints, stable vital signs, no apparent adverse anesthesia problems. No complications reported per nursing. GABRIELLE LOJA CRNA Aug 19, 2022 07:10
== END ==
LOC: CATH 07:25
PROVIDERS: ATTEND Internal Medicine Cardiovascular Disease
DX: I48.0 Paroxysmal atrial fibrillation (principal); I11.0 Hypertensive heart disease with heart failure; I50.22 Chronic systolic (congestive) heart failure; I65.23 Occlusion and stenosis of bilateral carotid arteries; G47.33 Obstructive sleep apnea (adult) (pediatric); J44.9 Chronic obstructive pulmonary disease, unspecified; R55 Syncope and collapse; R42 Dizziness and giddiness; E78.5 Hyperlipidemia, unspecified; E03.9 Hypothyroidism, unspecified; F32.A Depression, unspecified; Z99.81 Dependence on supplemental oxygen; Z87.891 Personal history of nicotine dependence; Z79.01 Long term (current) use of anticoagulants; Z79.899 Other long term (current) drug therapy; Z86.718 Personal history of other venous thrombosis and embolism; Z79.890 Hormone replacement therapy; Z86.19 Personal history of other infectious and parasitic diseases
CPT/HCPCS: 92960; 93005